=== PATIENT | female | born 1945 | race Caucasian/White ===

== ENCOUNTER 2017-09-30 09:25 | Inpatient (IN) | payer MEDICARE, OTHER ==
[2017-08-31 10:37] VITALS: Ht 157.5 cm; Wt 89.3 kg
--- NOTE | 2017-08-31 11:22 | PAT Medication Instructions ---
Service Date Aug 31, 2017. Current Home Medication List Amlodipine (Norvasc), 5 MG PO QPM Apixaban (Eliquis), 5 MG PO BID Aspirin (Aspirin Ec), 81 MG PO BID B-Complex W/Biotin & Folic Aci (Super B-50 B-Complex), 1 TAB PO QAM Biotin (Biotin 5000), 10,000 MCG PO QAM Calcium Carbonate (Tums), 1 TAB PO PRN Fish Oil (Anderson-3), 1 CAP PO QAM Flecainide (Tambocor), 75 MG PO BID Levothyroxine Sodium (Levothyroxine Sodium), 1 TAB PO QAM Metoprolol Succ (Toprol Xl) (Toprol-Xl ), 150 MG PO QAM Multivitamin (Multivitamin), 1 TAB PO QAM Nitroglycerin (Nitrostat), 0.4 MG UT PRN Simvastatin (Zocor), 20 MG PO QPM [Prevagen], 1 TAB PO QAM Medication Instructions For Your Scheduled Surgery -Hold the following medication for 2 days per your radiation safety officer's instructions: Apixaban (Eliquis), 5 MG PO BID -Contact your surgeon for instructions for: Aspirin (Aspirin Ec), 81 MG PO BID -Continue as directed: Nitroglycerin (Nitrostat), 0.4 MG UT PRN - Hold the following medications 2 weeks prior to surgery: Fish Oil (Anderson-3), 1 CAP PO QAM - Hold the following medications the morning of surgery: [Prevagen], 1 TAB PO QAM Multivitamin (Multivitamin), 1 TAB PO QAM Biotin (Biotin 5000), 10,000 MCG PO QAM Calcium Carbonate (Tums), 1 TAB PO PRN B-Complex W/Biotin & Folic Aci (Super B-50 B-Complex), 1 TAB PO QAM - Take the following medications the morning of surgery with a sip of water: Levothyroxine Sodium (Levothyroxine Sodium), 1 TAB PO QAM Metoprolol Succ (Toprol Xl) (Toprol-Xl ), 150 MG PO QAM Flecainide (Tambocor), 75 MG PO BID - Take the following medications as scheduled the night before surgery: Simvastatin (Zocor), 20 MG PO QPM Flecainide (Tambocor), 75 MG PO BID Calcium Carbonate (Tums), 1 TAB PO PRN (if needed) Amlodipine (Norvasc), 5 MG PO QPM If you have any questions please call us at [phone] or [phone] or [phone]
[2017-08-31 12:09] LABS: BASO % 0.1 %; BASO ABS # 0.01 K/uL (0-0.2); EOS % 1.3 %; EOS ABS # 0.09 K/uL (0-0.5); HEMATOCRIT 43.8 % (37-47); HEMOGLOBIN 14.7 g/dL (12.0-16.0); IG# 0.01 K/uL (0.00-0.02); LYMPH % 25.6 %; LYMPH ABS # 1.81 K/uL (1.2-3.4); MEAN CELL VOLUME 90.7 fL (80-100); MEAN CORPUSCULAR HEMOGLOBIN 30.4 pg (25-34); MEAN CORPUSCULAR HGB CONC 33.6 g/dl (32-36); MEAN PLATELET VOLUME 9.7 fL (7.4-10.4); MONO % 6.9 %; MONO ABS # 0.49 K/uL (0.11-0.59); NEUT ABS # 4.66 K/uL (1.4-6.5); PLATELET COUNT 233 K/uL (130-400); RED CELL DISTRIBUTION WIDTH CV 13.5 % (11.5-14.5); RED CELL DISTRIBUTION WIDTH SD 44.3 fL (36.4-46.3); WHITE BLOOD COUNT 7.07 K/uL (4.8-10.8)
[2017-08-31 12:15] LABS: CALCIUM 9.2 mg/dl (8.5-10.1); CREATININE 1.45 mg/dl (0.60-1.20); POTASSIUM 4.3 mmol/L (3.5-5.1)
[2017-09-30] VITALS (8 sets, daily range): BP systolic 129–156; BP diastolic 68–84; PULSE 49–59; TEMP 36.4–36.9; O2SAT 95–100
[~2017-09-30] VITALS: Ht 157.5 cm; Wt 89.3 kg
[~2017-09-30 09:25] MED LIST: AMLO-110 PO; APIX1TAB3 PO; ASPI81TA28 PO; ATROPINE SULFATE 0.1 MG/ML 5ML SYR IV PRN; B-COCAP5 PO; BIOTCAP2 PO; CALC500C3 PO; EpHEDrine SULFATE INJ 50 MG/ML AMP IV PRN; FLEC50TA20 PO; HYDROmorphone INJ 1 MG/ML SYR IV PRN; LABETALOL HCL IV 5 MG/ML 20ML IV PRN; LACTATED RINGER'S 1000ML 1,000 ML IV SCH; LEVO25TA5 PO; MEPERIDINE HCL 25 MG/ML CARP IV PRN; METO100T44 PO; MULT-506 PO; NITR0.4S UT; OMEG10007 PO; ONDANSETRON INJ 2 MG/ML 2 ML VIAL IV PRN; PREVAGEN PO; SIMV20TA2 PO; VANCOMYCIN 1GM/270ML NSS IV SCH
[2017-09-30] MEDS ORDERED: FENTANYL CITRATE INJ 50 MCG/1 ML 2 ML VIAL ONE ×2 (10:51→12:01)
[2017-09-30] MEDS ORDERED: MIDAZOLAM HCL 1 MG/ML 2ML VIAL ONE (10:51)
--- NOTE | 2017-09-30 10:55 | History & Physical Bridge Note ---
H&P Re-Evaluation Bridge Note: I have examined the patient, reviewed the History & Physical and in the interval since the performance of the History & Physical I have noted the following changes of clinical significance: No changes noted
--- NOTE | 2017-09-30 10:56 | History and Physical ---
History & Physical Date Sep 30, 2017. Chief Complaint Back and leg pain History of Present Illness The patient is a 72 year old female with complaints of back and leg pain Additional History Hepatic Disease: No Endocrine Disorder: No Kidney Disease: No Hypertension: No Heart Disease: No Bleeding Tendencies: No Infectious Diseases: No Allergies Coded Allergies: Sulfamethoxazole w/Trimethoprim (Unverified Allergy, Severe, LIP EDEMA AND ITCH, 09/30/17) Penicillins (Unverified Allergy, Mild, HIVES, 09/30/17) Prednisone (Verified Allergy, Unknown, UNABLE TO SLEEP FOR 50+ HRS, ) Ibuprofen (Unverified Adverse Reaction, Severe, NUMBNESS, 09/30/17) Home Medications Scheduled Amlodipine (Norvasc), 5 MG PO QPM Apixaban (Eliquis), 5 MG PO BID Aspirin (Aspirin Ec), 81 MG PO BID B-Complex W/Biotin & Folic Aci (Super B-50 B-Complex), 1 TAB PO QAM Biotin (Biotin 5000), 10,000 MCG PO QAM Calcium Carbonate (Tums), 1 TAB PO PRN Fish Oil (Camby-3), 1 CAP PO QAM Flecainide (Tambocor), 75 MG PO BID Levothyroxine Sodium (Levothyroxine Sodium), 1 TAB PO QAM Metoprolol Succ (Toprol Xl) (Toprol-Xl ), 150 MG PO QAM Multivitamin (Multivitamin), 1 TAB PO QAM Nitroglycerin (Nitrostat), 0.4 MG UT PRN Simvastatin (Zocor), 20 MG PO QPM [Prevagen], 1 TAB PO QAM Physical Examination Skin: warm/dry, no rash Eyes: normal inspection, EOMI, sclerae normal ENT: normal ENT inspection, pharynx normal Head: normocephalic, atraumatic Neck: supple, no adenopathy, trachea midline Respiratory/Chest: lungs clear, normal breath sounds, no respiratory distress Cardiovascular: regular rate, rhythm, no edema, no murmur Abdomen / GI: normal bowel sounds, non tender Back: normal inspection Extremities: normal inspection, normal range of motion Neurologic/Psych: no motor/sensory deficits, alert, normal reflexes, oriented x 3 Diagnosis Lumbar spinal stenosis Plan of Treatment L4-S1 decompression and fusion
[2017-09-30] MEDS ORDERED: BACITRACIN 50000 UNIT VIAL ONE (11:11)
[2017-09-30] MEDS ORDERED: BUPIVACAINE/EPINEPHRINE 0.5% MPF 1:200,000 30 ML VIAL ONE (11:11)
[2017-09-30] MEDS ORDERED: HYDROmorphone INJ 2 MG/ML SYR/VIAL ONE ×2 (12:01→13:32)
[2017-09-30] MEDS ORDERED: ONDANSETRON INJ 2 MG/ML 2 ML VIAL ONE ×2 (12:21→13:33)
[2017-09-30] MEDS ORDERED: LIDOCAINE HCL 2% 2 ML VIAL (20MG/ML) ONE (12:21)
[2017-09-30] MEDS ORDERED: PROPOFOL IV EMULSION 10 MG/ML 20 ML VIAL IV ONE (12:21)
[2017-09-30] MEDS ORDERED: DEXAMETHASONE SOD INJ 4 MG/ML VIAL ONE (12:21)
[2017-09-30] MEDS ORDERED: ROCURONIUM BROMIDE 10 MG/ML 5 ML VIAL IV ONE ×3 (13:09)
[2017-09-30] MEDS ORDERED: EpHEDrine SULFATE 50MG/5ML SYR ONE ×2 (13:10→13:33)
[2017-09-30] MEDS ORDERED: FLOSEAL HEMOSTATIC MATRIX 10ML TOP ONE (13:20)
--- NOTE | 2017-09-30 13:29 | [facility] Operative Report ---
Operative Report Operative Date Sep 30, 2017. Pre-Operative Diagnosis Lumbar spinal stenosis Post-Operative Diagnosis Lumbar spinal stenosis Procedure(s) Performed #1 lumbar decompression medial facetectomy foraminotomy L3-4 L4-5 L5-S1. #2 posterior spinal fusion L4-5 L5-S1. #3 placement of posterior segmental transportation L4-5 L5-S1. #4 interbody fusion L4-5. #5 placed a peek cage 13 x 22 mm at L4-5. #6 placement of locally harvested Bosch's allograft in the posterior gutters. #7 placement if his counts sponge, mass graft the posterior gutters and ostially up in the interbody space. Surgeon Dr. Mcdaniels Customer Account Manager Surgeon(s) Helen Argueta PA-C Estimated Blood Loss 200 ml Findings Severe spinal stenosis Specimens none per surgeon Anesthesia Type General Description of Procedure Patient was met with preoperatively case discussed all questions addressed. After informed consent obtained patient was taken to the operative suite underwent intubation and placed in a prone position on the George table on top of the Joseph frame. All bony promises were well padded the eyes were inspected to ensure no external pressure placed upon them. Sharp dissection with the assistance of Bovie cautery was performed down to and exposing the lamina and transverse processes of L4-5 and sacral ala bilaterally. From caudocephalad fashion complete laminectomy of L5 L4 and partial laminectomy of L3 was performed addressing severe lateral recess and foraminal stenosis. Pedicle screws were then placed in L4 L5-S1 levels bilaterally with the assistance of fluoroscopy and the appropriate size bobby placed. Through a trans- foraminal approach on the right complete discectomy of 045 was performed endplates created to subcortical bleeding bone and a 13 x 22 mm peek cage filled with ostium bone graft tapped in position. The bobby and locked in final position bilaterally. The transverse processes of L4-L5 and sacral ala burred to subcortical bleeding bone. InFUSE collagen sponge mesh graft and locally harvested Bosch's Was placed in the posterior gutters. 15 round ALLISON drain was inserted. Incision was closed with 1 Vicryl in the fascia 2-0 Vicryl subcutaneous and 4-0 Monocryl for fashion closure Steri-Strips sterile dressings placed. Patient weakened taken to PACU in stable condition. Please note Helen Rush was present throughout the entire procedure involved the patient positioning complex portions of the surgery and fashion closure. I attest to the content of the Intraoperative Record and any orders documented therein. Any exceptions are noted below.
[2017-09-30] MEDS ORDERED: NITROGLYCERIN 0.4 MG SL PER TAB CHARGE UT PRN (13:30)
[2017-09-30] MEDS ORDERED: FAMOTIDINE 20 MG TAB PO PRN (13:30)
[2017-09-30] MEDS ORDERED: DO NOT ADMINISTER PNEUMOCOCCAL VACCINE PRN (13:30)
[2017-09-30] MEDS ORDERED: ACETAMINOPHEN IV 100 ML IV PRN (13:30)
[2017-09-30] MEDS ORDERED: LORAZEPAM INJ 0.5 MG in SYRINGE 0.75 ML IV PRN (13:30)
[2017-09-30] MEDS ORDERED: hydrOXYzine HCL 25 MG TAB PO PRN (13:30)
[2017-09-30] MEDS ORDERED: ONDANSETRON INJ 2 MG/ML 2 ML VIAL IV PRN (13:30)
[2017-09-30] MEDS ORDERED: MAGNESIUM HYDROXIDE SUSP 30 ML UDC PO PRN (13:30)
[2017-09-30] MEDS ORDERED: DO NOT ADMINISTER FLU VACCINE PRN (13:30)
[2017-09-30] MEDS ORDERED: ACETAMINOPHEN 500 MG TAB PO PRN (13:30)
[2017-09-30] MEDS ORDERED: NALOXONE HCL 0.4 MG/1 ML VIAL/CARP IV PRN ×2 (13:30)
[2017-09-30] MEDS ORDERED: BISACODYL 10 MG SUPP PR PRN (13:30)
[2017-09-30] MEDS ORDERED: SOD PHOSPHATE/SOD BIPHOSPHATE ENEMA 132 ML BTL PR PRN (13:30)
[2017-09-30] MEDS ORDERED: ALUMINUM/MAGNESIUM SUSP 30 ML UDC PO PRN (13:30)
[2017-09-30] MEDS ORDERED: PROMETHAZINE HCL INJ 12.5 MG in SODIUM CHLORIDE 0.9% 50ML 50 ML IV PRN (13:30)
[2017-09-30] MEDS ORDERED: METOCLOPRAMIDE HCL INJ 5 MG/ML 2 ML VIAL IV PRN (13:30)
[2017-09-30] MEDS ORDERED: LORAZEPAM 0.5 MG TAB PO PRN (13:30)
[2017-09-30] MEDS ORDERED: SODIUM CHLORIDE 0.9% 1000ML 1,000 ML IV SCH (13:30)
[2017-09-30] MEDS ORDERED: GLYCOPYRROLATE INJ 0.2 MG/ML VIAL ONE (13:33)
[2017-09-30] MEDS ORDERED: NURSING VERBAL MED ORDER ONE ×2 (13:45→22:45)
--- NOTE | 2017-09-30 13:46 | DIAGNOSTIC IMAGING REPORT ---
LUMBAR SPINE 2 OR 3 VIEW CLINICAL HISTORY: L4-S1 DECOMPRESSION/FUSION laminectomy TECHNIQUE: Image intensifier COMPARISON STUDY: None FINDINGS: Images from the image intensifier were obtained of the low lumbar spine. These demonstrate a L4, L5, and S1 laminectomy and fusion. A disc spacer present at L4-L5. Alignment appears anatomic. IMPRESSION: Laminectomy and fusion from L4 through S1. The above report was generated using voice recognition software. It may contain grammatical, syntax or spelling errors. Electronically signed by: Shailesh Garcia M.D. 09/30/2017 1:45 PM Dictated Date/Time: 09/30/2017 1:44 PM
[2017-09-30] MEDS ORDERED: HYDROmorphone HCL 0.5MG/ML 50 ML CASSETTE ONE (13:47)
[2017-09-30] MEDS: FENTANYL CITRATE INJ 50 MCG/1 ML 2 ML VIAL IV PRN ×4 (13:51→14:11)
[2017-09-30] MEDS ORDERED: ALBUT/IPRATROP 3MG/0.5MG NEB 3 ML VIAL INH ONE (14:00)
--- NOTE | 2017-09-30 14:37 | Anesthesiology Progress Note ---
Anesthesia Post Op Note Date & Time Sep 30, 2017 at 14:37 Vital Signs Pain Intensity: 4 Vital Signs Past 12 Hours Date Time Temp Pulse Resp B/P (MAP) Pulse Ox O2 Delivery O2 Flow Rate FiO2 09/30/17 14:30 49 14 163/64 98 Nasal Cannula 4 09/30/17 14:20 36.2 48 12 170/84 97 Nasal Cannula 4 09/30/17 14:10 49 12 163/66 97 Nasal Cannula 4 09/30/17 14:00 54 14 166/78 100 Oxymask 10 09/30/17 14:00 53 16 100 Mask 12.0 09/30/17 13:51 59 14 192/90 100 Oxymask 10 09/30/17 13:44 36.5 62 14 178/112 100 Oxymask 10 09/30/17 10:02 36.6 55 20 156/74 98 Room Air Notes Mental Status: alert / awake / arousable, participated in evaluation Pt Amnestic to Procedure: Yes Nausea / Vomiting: adequately controlled Pain: adequately controlled Airway Patency, RR, SpO2: stable & adequate BP & HR: stable & adequate Hydration State: stable & adequate Anesthetic Complications: no major complications apparent
[2017-09-30] MEDS: HYDROmorphone HCL 0.5MG/ML 50 ML CASSETTE IV PRN ×2 (14:54→23:06)
--- NOTE | 2017-09-30 17:30 | Medical Consult ---
Consultation Date of Consultation: Sep 30, 2017. Attending Physician: Yair Mcdaniels D.O. Reason for Consultation: Postop medical management History of Present Illness 72-year-old female who is s/p L4-S1 lumbar decompression fusion today by Dr. Mcdaniels. Postoperatively patient is doing well. She is somewhat lethargic, arouses to verbal commands. She reports her pain is well controlled. She denies chest pain shortness of breath. No lightheadedness or dizziness. She denies abdominal pain and nausea. No numbness or tingling to lower extremities. She has a Balbuena in place draining clear yellow urine. Past Medical/Surgical History Medical Problems: (1) HLD (hyperlipidemia) Status: Chronic (2) HTN (hypertension) Status: Chronic (3) Hypothyroidism Status: Chronic (4) Nonobstructive atherosclerosis of coronary artery Permanent Comment: cath 2011 - non obstructive CAD Lexiscan 2015 - negative for ischemia Status: Chronic (5) Paroxysmal A-fib Status: Chronic Surgical Problems: (1) H/O arthroscopic knee surgery Status: Chronic (2) H/O shoulder surgery Status: Chronic (3) History of appendectomy Status: Chronic (4) History of carpal tunnel surgery Status: Chronic (5) History of cataract surgery Status: Chronic (6) History of hysterectomy Status: Chronic (7) S/P rotator cuff repair Status: Chronic (8) Status post arthroscopy of hip Status: Chronic (9) Status post right knee replacement Status: Chronic Family History Noncontributory Social History Smoking Status: Current Some Day Smoker Alcohol Use: none Allergies Coded Allergies: Sulfamethoxazole w/Trimethoprim (Unverified Allergy, Severe, LIP EDEMA AND ITCH, 09/30/17) Penicillins (Unverified Allergy, Mild, HIVES, 09/30/17) Prednisone (Verified Allergy, Unknown, UNABLE TO SLEEP FOR 50+ HRS, ) Ibuprofen (Unverified Adverse Reaction, Severe, NUMBNESS, 09/30/17) Home Medications Tums (Calcium Carbonate) 500 Mg Chew 1 Tab PO PRN Super B-50 B-Complex (B-Complex W/Biotin & Folic Aci) 1 Cap Cap 1 Tab PO QAM Biotin 5000 (Biotin) 5 Mg Cap 10,000 Mcg PO QAM Multivitamin (Multivitamins) Tab 1 Tab PO QAM [Prevagen] 1 Tab PO QAM Enore[place]-3 (Fish Oil) 1 Ea Cap 1 Cap PO QAM Aspirin Ec (Aspirin) 81 Mg Tab 81 Mg PO BID Tambocor (Flecainide Acetate) 50 Mg Tab 75 Mg PO BID Eliquis (Apixaban) 5 Mg Tab 5 Mg PO BID Zocor (Simvastatin) 20 Mg Tab 20 Mg PO QPM Norvasc (Amlodipine Besylate) 5 Mg Tab 5 Mg PO QPM Levothyroxine Sodium 25 Mcg Tab 1 Tab PO QAM 90 Days Toprol-Xl (Metoprolol Succinate) 100 Mg Tabcr 150 Mg PO QAM Nitrostat (Nitroglycerin) 0.4 Mg Sub 0.4 Mg UT PRN Current Inpatient Medications Current Inpatient Medications Medications (Trade) Dose Ordered Sig/Donavan Route Start Time Stop Time Status Last Admin Dose Admin Lactated Ringer's 1,000 ml @ 15 mls/hr Q24H IV 09/30/17 06:00 10/01/17 05:59 09/30/17 10:47 15 MLS/HR Vancomycin HCl 270 ml @ 125 mls/hr PREOP IV 09/30/17 06:00 09/30/17 18:00 09/30/17 10:48 125 MLS/HR Clindamycin Phosphate 600 mg/ Dextrose 54 ml @ 100 mls/hr Q8H IV 09/30/17 19:00 10/01/17 03:33 Promethazine HCl 12.5 mg/Sodium Chloride 50.5 ml @ 202 mls/hr Q6H PRN IV 09/30/17 13:30 10/30/17 13:29 Ondansetron HCl (Zofran Inj) 4 mg Q6H PRN IV 09/30/17 13:30 10/30/17 13:29 Metoclopramide HCl (Reglan Inj) 10 mg Q6H PRN IV 09/30/17 13:30 10/30/17 13:29 Lorazepam (Ativan Tab) 0.5 mg Q8H PRN PO 09/30/17 13:30 10/30/17 13:29 Lorazepam 0.5 mg/ Syringe 1 ml @ 1 mls/min Q8H PRN IV 09/30/17 13:30 10/30/17 13:29 Pneumococcal Polysaccharide Vaccine 1 ea PRN PRN N/A 09/30/17 13:30 10/30/17 13:29 Influenza Virus Vacc Triv Types A&B 1 ea PRN PRN N/A 09/30/17 13:30 10/30/17 13:29 Polyethylene (Miralax Powder Packet) 17 gm Q6 PO 10/02/17 06:00 11/01/17 05:59 Bisacodyl (Dulcolax Supp) 10 mg DAILY PRN ID 09/30/17 13:30 10/30/17 13:29 Magnesium Hydroxide (Milk Of Magnesia Susp) 30 ml DAILY PRN PO 09/30/17 13:30 10/30/17 13:29 Hydromorphone HCl (Dilaudid Inj) 0.5 mg Q3H PRN IV 10/01/17 06:00 10/15/17 05:59 Oxycodone HCl (Roxicodone Immediate Rel Tab) 5-10mg prn moderate to sev... Q4H PRN PO 10/01/17 06:00 10/15/17 05:59 Sodium Chloride 1,000 ml @ 150 mls/hr Q6H40M IV 09/30/17 15:30 10/30/17 15:29 Acetaminophen (Tylenol Tab) 1,000 mg Q8H PRN PO 09/30/17 13:30 10/30/17 13:29 Acetaminophen 100 ml @ 400 mls/hr Q8H PRN IV 09/30/17 13:30 10/30/17 13:29 Naloxone HCl (Narcan Inj) 0.1 mg Q5M PRN IV 09/30/17 13:30 10/30/17 13:29 Senna/Docusate Sodium (Senokot S Tab) 2 tab HS PO 09/30/17 21:00 10/30/17 20:59 Sodium Biphosphate/ Sodium Phosphate (Fleet Enema) 132 ml ONE PRN ID 09/30/17 13:30 10/30/17 13:29 Hydroxyzine HCl (Vistaril Tab) 25 mg Q8H PRN PO 09/30/17 13:30 10/30/17 13:29 Al Hydroxide/Mg Hydroxide (Maalox Susp) 30 ml Q6H PRN PO 09/30/17 13:30 10/30/17 13:29 Famotidine (Pepcid Tab) 20 mg DAILY PRN PO 09/30/17 13:30 10/30/17 13:29 Diphenhydramine HCl (Benadryl Cap) 25 mg Q6H PRN PO 09/30/17 13:30 10/30/17 13:29 Miscellaneous Information (Discontinue DEMAND PLANNER) 1 ea 0600 ONCE N/A 10/01/17 06:00 10/01/17 06:01 Naloxone HCl (Narcan Inj) 0.1 mg Q5M PRN IV 09/30/17 13:30 10/01/17 06:00 Hydromorphone HCl (Dilaudid Slicing Machine Tender) 25 mg PRN PRN IV 09/30/17 13:30 10/01/17 06:00 09/30/17 14:54 25 MG Sodium Chloride 1,000 ml @ 15 mls/hr Q24H IV 09/30/17 13:30 10/01/17 06:00 Amlodipine Besylate (Norvasc Tab) 5 mg QPM PO 09/30/17 21:00 10/30/17 20:59 Aspirin (Ecotrin Tab) 81 mg BID PO 09/30/17 21:00 10/30/17 20:59 Calcium Carbonate (Tums Chew Tab) 500 mg Q2H PRN PO 09/30/17 13:30 10/30/17 13:29 Flecainide Acetate (Tambocor Tab) 75 mg BID PO 09/30/17 21:00 10/30/17 20:59 Levothyroxine Sodium (Synthroid Tab) 25 mcg DAILYBB PO 10/01/17 06:00 10/31/17 05:59 Metoprolol Succinate (Toprol Xl Tab) 150 mg QAM PO 10/01/17 09:00 10/31/17 08:59 Nitroglycerin (Nitrostat Tab) 0.4 mg UD PRN UT 09/30/17 13:30 10/30/17 13:29 Simvastatin (Zocor Tab) 20 mg QPM PO 09/30/17 21:00 10/30/17 20:59 Hydromorphone HCl (Dilaudid Inj) 1 mg Q3H PRN IV 10/01/17 06:00 10/15/17 05:59 Review of Systems ROS per HPI, all other systems reviewed and negative Physical Exam Date Time Temp Pulse Resp B/P (MAP) Pulse Ox O2 Delivery O2 Flow Rate FiO2 09/30/17 16:52 36.4 49 15 131/76 (94) 98 Nasal Cannula 4.0 09/30/17 15:55 36.4 50 15 150/68 (95) 96 Nasal Cannula 4.0 09/30/17 15:40 Nasal Cannula 4.0 09/30/17 15:24 50 15 129/70 (89) 97 Nasal Cannula 4.0 09/30/17 14:55 Nasal Cannula 4.0 09/30/17 14:55 Nasal Cannula 4.0 09/30/17 14:30 49 14 163/64 98 Nasal Cannula 4 09/30/17 14:20 36.2 48 12 170/84 97 Nasal Cannula 4 09/30/17 14:10 49 12 163/66 97 Nasal Cannula 4 09/30/17 14:00 54 14 166/78 100 Oxymask 10 09/30/17 14:00 53 16 100 Mask 12.0 09/30/17 13:51 59 14 192/90 100 Oxymask 10 09/30/17 13:44 36.5 62 14 178/112 100 Oxymask 10 09/30/17 10:02 36.6 55 20 156/74 98 Room Air General Appearance: WD/WN, no apparent distress Head: normocephalic, atraumatic Eyes: normal inspection, EOMI, sclerae normal ENT: hearing grossly normal, + pertinent finding (Mucous membranes moist) Neck: supple, no JVD, trachea midline Respiratory/Chest: lungs clear, normal breath sounds, no respiratory distress, + wheezing (Mild expiratory noted in anterior lung grimaldo that clears with coughing) Cardiovascular: regular rate, rhythm, no edema, normal peripheral pulses Abdomen/GI: normal bowel sounds, non tender, soft, no organomegaly Back: + pertinent finding (S/P back surgery, drain in place draining bloody drainage, pedal pushes and pulls strong bilaterally) Extremities/Musculoskelatal: normal inspection, no calf tenderness, normal capillary refill Neurologic/Psych: no motor/sensory deficits, oriented x 3, + pertinent finding (Lethargic and falls asleep quickly during exam however arouses to verbal stimuli) Skin: normal color, warm/dry Assessment & Plan S/P L4-S1 DECOMPRESSION FUSION - POD#0 - activity and wound care orders as per ortho - pain control with bowel regimen - PT/OT - monitor H/H for acute blood loss anemia and transfuse blood products PRN PAROXYSMAL ATRIAL FIBRILLATION -Rhythm controlled on flecainide and rate controlled on metoprolol, continue both -Anticoagulated on Eliquis, on hold due to surgery -Resume Eliquis when okay with spine orthopedics HYPERTENSION -BP controlled, continue metoprolol and amlodipine HYPOTHYROIDISM -Continue levothyroxine HYPERLIPIDEMIA -Continue statin DVT PROPHYLAXIS -Teds and SCDs as per orthopedics, resume orthopedics as per their discretion Thank you for this consultation. We will follow the patient with you during their hospital stay. You can reach a [facility] via pager @ . Addendum: I have seen and examined the patient and agree with the note above. Michael,
[2017-09-30] MEDS: CLINDAMYCIN IV 600 MG in DEXTROSE 5% 50ML 50 ML IV SCH (19:54)
[2017-09-30] MEDS: SODIUM CHLORIDE 0.9% 1000ML 1,000 ML IV SCH (19:55)
[2017-09-30] MEDS: DOCUSATE SODIUM/SENNA 50/8.6MG TAB PO SCH (21:20)
[2017-09-30] MEDS: AMLODIPINE BESYLATE 5 MG TAB PO SCH (21:21)
[2017-09-30] MEDS: SIMVASTATIN 20 MG TAB PO SCH (21:21)
[2017-09-30] MEDS: FLECAINIDE ACETATE 100 MG TAB PO SCH (21:22)
[2017-09-30] MEDS: ASPIRIN 81 MG ECTAB PO SCH (21:22)
[2017-09-30] MEDS: CALCIUM CARBONATE 500 MG CHEWABLE PO PRN (23:10)
[2017-10-01] VITALS (9 sets, daily range): BP systolic 130–165; BP diastolic 72–83; PULSE 57–66; TEMP 36.4–37.1; O2SAT 93–97
[2017-10-01] MEDS: SODIUM CHLORIDE 0.9% 1000ML 1,000 ML IV SCH ×2 (02:00→15:24)
[2017-10-01] MEDS: CLINDAMYCIN IV 600 MG in DEXTROSE 5% 50ML 50 ML IV SCH (02:00)
[2017-10-01] MEDS: LEVOTHYROXINE 25 MCG TAB PO SCH (05:24)
[2017-10-01] MEDS ORDERED: DC PCA ONE (06:00)
[2017-10-01] MEDS ORDERED: HYDROmorphone INJ 0.5 MG/0.5 ML SYR IV PRN (06:00)
[2017-10-01] MEDS ORDERED: NURSING DECISION MEDICATION ORDER SCH (06:15)
[2017-10-01] MEDS: ASPIRIN 81 MG ECTAB PO SCH ×2 (09:25→21:46)
[2017-10-01] MEDS: FLECAINIDE ACETATE 100 MG TAB PO SCH ×2 (09:31→21:46)
[2017-10-01] MEDS: METOPROLOL SUCC 50MG EXT REL TAB PO SCH (09:35)
--- NOTE | 2017-10-01 09:46 | Progress Note ---
Progress Note Date of Service Oct 01, 2017. Progress Note Patient's back pain is controlled. She denies any leg pain. Vital signs are stable. On exam she is good strength testing. Assessment status post lumbar decompression and fusion. Plan at this time we will initiate physical therapy advance her bowel regimen to anticipate discharge home this weekend.
--- NOTE | 2017-10-01 09:57 | Anesthesiology Progress Note ---
Anesthesia Post Op Note Date & Time Oct 01, 2017 at 09:55 Vital Signs Vital Signs Past 12 Hours Date Time Temp Pulse Resp B/P (MAP) Pulse Ox O2 Delivery O2 Flow Rate FiO2 10/01/17 09:35 61 152/76 (101) 10/01/17 07:45 36.4 57 14 144/73 (96) 96 Room Air 10/01/17 05:12 96 Room Air 10/01/17 03:25 36.7 60 18 130/72 (91) 97 Nasal Cannula 2.0 10/01/17 00:10 96 Nasal Cannula 1.0 09/30/17 23:12 36.5 59 15 137/84 (101) 95 Nasal Cannula 2.0 Notes Mental Status: alert / awake / arousable, participated in evaluation Pt Amnestic to Procedure: Yes Nausea / Vomiting: adequately controlled Pain: adequately controlled Airway Patency, RR, SpO2: stable & adequate BP & HR: stable & adequate Hydration State: stable & adequate Anesthetic Complications: no major complications apparent
[2017-10-01 10:17] LABS: EOS % 0.1 %; EOS ABS # 0.01 K/uL (0-0.5); HEMATOCRIT 38.6 % (37-47); HEMOGLOBIN 12.8 g/dL (12.0-16.0); IG# 0.04 K/uL (0.00-0.02); LYMPH ABS # 1.18 K/uL (1.2-3.4); MEAN CELL VOLUME 92.8 fL (80-100); MEAN CORPUSCULAR HEMOGLOBIN 30.8 pg (25-34); MEAN CORPUSCULAR HGB CONC 33.2 g/dl (32-36); MEAN PLATELET VOLUME 10.3 fL (7.4-10.4); MONO % 8.6 %; MONO ABS # 1.12 K/uL (0.11-0.59); NEUT ABS # 10.73 K/uL (1.4-6.5); PLATELET COUNT 203 K/uL (130-400); RED CELL DISTRIBUTION WIDTH CV 13.6 % (11.5-14.5); RED CELL DISTRIBUTION WIDTH SD 46.2 fL (36.4-46.3); WHITE BLOOD COUNT 13.08 K/uL (4.8-10.8)
[2017-10-01 10:48] LABS: CALCIUM 8.8 mg/dl (8.5-10.1); CREATININE 1.85 mg/dl (0.60-1.20); POTASSIUM 4.9 mmol/L (3.5-5.1)
[2017-10-01] MEDS: HYDROmorphone INJ 1 MG/ML SYR IV PRN ×2 (13:33→23:08)
[2017-10-01] MEDS: ALBUT/IPRATROP 3MG/0.5MG NEB 3 ML VIAL INH PRN (14:38)
--- NOTE | 2017-10-01 15:03 | Progress Note ---
Subjective Date of Service: Oct 01, 2017. Subjective Pt evaluation today including: conversation w/ patient, physical exam, lab review, review of studies, review of inpatient medication list Saw/examined the patient in room 304 She's doing okay; pain in the lower back persists and worsened after therapy, improved with medications +wheezing; patient states she does not have COPD or asthma; but has a significant smoking hx. - tells me that she stopped smoking Review of Systems Constitutional: No fever, No chills Respiratory: + wheezing, No cough, No sputum, No shortness of breath, No dyspnea on exertion, No dyspnea at rest, No hemoptysis Cardiac: No chest pain, No edema, No palpitations Abdomen: + constipation, No pain, No nausea, No vomiting, No diarrhea Musculoskeletal: + see HPI, + joint pain Medications Current Inpatient Medications Medications (Trade) Dose Ordered Sig/Donavan Route Start Time Stop Time Status Last Admin Dose Admin Promethazine HCl 12.5 mg/Sodium Chloride 50.5 ml @ 202 mls/hr Q6H PRN IV 09/30/17 13:30 10/30/17 13:29 Ondansetron HCl (Zofran Inj) 4 mg Q6H PRN IV 09/30/17 13:30 10/30/17 13:29 Metoclopramide HCl (Reglan Inj) 10 mg Q6H PRN IV 09/30/17 13:30 10/30/17 13:29 Lorazepam (Ativan Tab) 0.5 mg Q8H PRN PO 09/30/17 13:30 10/30/17 13:29 Lorazepam 0.5 mg/ Syringe 1 ml @ 1 mls/min Q8H PRN IV 09/30/17 13:30 10/30/17 13:29 Pneumococcal Polysaccharide Vaccine 1 ea PRN PRN N/A 09/30/17 13:30 10/30/17 13:29 Influenza Virus Vacc Triv Types A&B 1 ea PRN PRN N/A 09/30/17 13:30 10/30/17 13:29 Polyethylene (Miralax Powder Packet) 17 gm Q6 PO 10/02/17 06:00 11/01/17 05:59 Bisacodyl (Dulcolax Supp) 10 mg DAILY PRN ME 09/30/17 13:30 10/30/17 13:29 Magnesium Hydroxide (Milk Of Magnesia Susp) 30 ml DAILY PRN PO 09/30/17 13:30 10/30/17 13:29 Hydromorphone HCl (Dilaudid Inj) 0.5 mg Q3H PRN IV 10/01/17 06:00 10/15/17 05:59 Oxycodone HCl (Roxicodone Immediate Rel Tab) 5-10mg prn moderate to sev... Q4H PRN PO 10/01/17 06:00 10/15/17 05:59 Acetaminophen (Tylenol Tab) 1,000 mg Q8H PRN PO 09/30/17 13:30 10/30/17 13:29 Acetaminophen 100 ml @ 400 mls/hr Q8H PRN IV 09/30/17 13:30 10/30/17 13:29 Naloxone HCl (Narcan Inj) 0.1 mg Q5M PRN IV 09/30/17 13:30 10/30/17 13:29 Senna/Docusate Sodium (Senokot S Tab) 2 tab HS PO 09/30/17 21:00 10/30/17 20:59 09/30/17 21:20 2 TAB Sodium Biphosphate/ Sodium Phosphate (Fleet Enema) 132 ml ONE PRN ME 09/30/17 13:30 10/30/17 13:29 Hydroxyzine HCl (Vistaril Tab) 25 mg Q8H PRN PO 09/30/17 13:30 10/30/17 13:29 Al Hydroxide/Mg Hydroxide (Maalox Susp) 30 ml Q6H PRN PO 09/30/17 13:30 10/30/17 13:29 Famotidine (Pepcid Tab) 20 mg DAILY PRN PO 09/30/17 13:30 10/30/17 13:29 Diphenhydramine HCl (Benadryl Cap) 25 mg Q6H PRN PO 09/30/17 13:30 10/30/17 13:29 Amlodipine Besylate (Norvasc Tab) 5 mg QPM PO 09/30/17 21:00 10/30/17 20:59 09/30/17 21:21 5 MG Aspirin (Ecotrin Tab) 81 mg BID PO 09/30/17 21:00 10/30/17 20:59 10/01/17 09:25 81 MG Calcium Carbonate (Tums Chew Tab) 500 mg Q2H PRN PO 09/30/17 13:30 10/30/17 13:29 09/30/17 23:10 500 MG Flecainide Acetate (Tambocor Tab) 75 mg BID PO 09/30/17 21:00 10/30/17 20:59 10/01/17 09:31 75 MG Levothyroxine Sodium (Synthroid Tab) 25 mcg DAILYBB PO 10/01/17 06:00 10/31/17 05:59 10/01/17 05:24 25 MCG Metoprolol Succinate (Toprol Xl Tab) 150 mg QAM PO 10/01/17 09:00 10/31/17 08:59 10/01/17 09:35 150 MG Nitroglycerin (Nitrostat Tab) 0.4 mg UD PRN UT 09/30/17 13:30 10/30/17 13:29 Simvastatin (Zocor Tab) 20 mg QPM PO 09/30/17 21:00 10/30/17 20:59 09/30/17 21:21 20 MG Hydromorphone HCl (Dilaudid Inj) 1 mg Q3H PRN IV 10/01/17 06:00 10/15/17 05:59 10/01/17 13:33 1 MG Albuterol/ Ipratropium (Duoneb) 3 ml Q4R PRN INH 10/01/17 13:45 10/31/17 13:44 Objective Vital Signs Date Time Temp Pulse Resp B/P (MAP) Pulse Ox O2 Delivery O2 Flow Rate FiO2 10/01/17 09:35 61 152/76 (101) 10/01/17 07:45 36.4 57 14 144/73 (96) 96 Room Air 10/01/17 07:26 Room Air 10/01/17 05:12 96 Room Air 10/01/17 03:25 36.7 60 18 130/72 (91) 97 Nasal Cannula 2.0 10/01/17 00:10 96 Nasal Cannula 1.0 09/30/17 23:12 36.5 59 15 137/84 (101) 95 Nasal Cannula 2.0 09/30/17 20:15 36.4 53 16 132/69 (90) 97 Nasal Cannula 2.0 3/14/18 18:10 36.9 52 15 129/82 (98) 97 Nasal Cannula 4.0 09/30/17 16:52 36.4 49 15 131/76 (94) 98 Nasal Cannula 4.0 09/30/17 15:55 36.4 50 15 150/68 (95) 96 Nasal Cannula 4.0 09/30/17 15:40 Nasal Cannula 4.0 09/30/17 15:24 50 15 129/70 (89) 97 Nasal Cannula 4.0 09/30/17 14:55 Nasal Cannula 4.0 09/30/17 14:55 Nasal Cannula 4.0 Physical Exam General Appearance: no apparent distress, + obese Respiratory/Chest: no respiratory distress, no accessory muscle use, + wheezing (diffuse end expiratory wheezing) Cardiovascular: regular rate, rhythm, no edema, no murmur Extremities: normal range of motion, non-tender, normal inspection, no pedal edema, no calf tenderness Neurologic/Psychiatric: no motor/sensory deficits, alert Laboratory Results Last 24 Hours Test 10/01/17 09:46 White Blood Count 13.08 K/uL Red Blood Count 4.16 M/uL Hemoglobin 12.8 g/dL Hematocrit 38.6 % Mean Corpuscular Volume 92.8 fL Mean Corpuscular Hemoglobin 30.8 pg Mean Corpuscular Hemoglobin Concent 33.2 g/dl Platelet Count 203 K/uL Mean Platelet Volume 10.3 fL Neutrophils (%) (Auto) 82.0 % Lymphocytes (%) (Auto) 9.0 % Monocytes (%) (Auto) 8.6 % Eosinophils (%) (Auto) 0.1 % Basophils (%) (Auto) 0.0 % Neutrophils # (Auto) 10.73 K/uL Lymphocytes # (Auto) 1.18 K/uL Monocytes # (Auto) 1.12 K/uL Eosinophils # (Auto) 0.01 K/uL Basophils # (Auto) 0.00 K/uL RDW Standard Deviation 46.2 fL RDW Coefficient of Variation 13.6 % Immature Granulocyte % (Auto) 0.3 % Immature Granulocyte # (Auto) 0.04 K/uL Sodium Level 136 mmol/L Potassium Level 4.9 mmol/L Chloride Level 104 mmol/L Carbon Dioxide Level 24 mmol/L Anion Gap 8.0 mmol/L Blood Urea Nitrogen 42 mg/dl Creatinine 1.85 mg/dl Est Creatinine Clear Calc Drug Dose 27.7 ml/min Estimated GFR () 30.6 Estimated GFR (Non- 26.4 BUN/Creatinine Ratio 22.7 Random Glucose 115 mg/dl Calcium Level 8.8 mg/dl Assessment and Plan This is a 72 year old female with a PMH of paroxysmal atrial fibrillation, CAD, HTN, hypothyroidism, HLD - presents for a lumbar decompression/fusion s/p lumbosacral decompression/fusion * POD #1 * doing well, no problems/issues * pain management as per ortho * monitor H/H Acute Kidney Injury likely underlying chronic kidney disease * creatinine elevated at around 1.8 today * yesterday, creatinine was around 1.4; from previous admission in 2013; creat baseline might be around 1.4 * for now, will do gentle IV hydration and encourage PO intake, recheck BMP in AM Wheezing * hx. of tobacco use * adding nebs * incentive spirometer * denies shortness of breath Paroxysmal A. Fib * Rhythm controlled on flecainide and rate controlled on metoprolol, continue both * resume Eliquis when okay with ortho HTN * BP controlled, continue metoprolol and amlodipine Hypothyroidism * Continue levothyroxine HLD * cont. statin DVT ppx * as per ortho FULL CODE
[2017-10-01] MEDS: CALCIUM CARBONATE 500 MG CHEWABLE PO PRN (18:57)
[2017-10-01] MEDS: DOCUSATE SODIUM/SENNA 50/8.6MG TAB PO SCH (21:46)
[2017-10-01] MEDS: SIMVASTATIN 20 MG TAB PO SCH (21:47)
[2017-10-01] MEDS: AMLODIPINE BESYLATE 5 MG TAB PO SCH (21:47)
[2017-10-02] VITALS (8 sets, daily range): BP systolic 121–170; BP diastolic 69–90; PULSE 62–68; TEMP 36.9–37.1; O2SAT 90–100
[2017-10-02] MEDS: SODIUM CHLORIDE 0.9% 1000ML 1,000 ML IV SCH ×2 (03:23→15:26)
[2017-10-02] MEDS: OXYCODONE HCL IR 5 MG TAB (IMMEDIATE RELEASE) PO PRN ×4 (03:23→17:56)
[2017-10-02] MEDS: LEVOTHYROXINE 25 MCG TAB PO SCH (05:37)
[2017-10-02] MEDS: POLYETHYLENE (MIRALAX) 17 GM PACK PO SCH ×3 (05:37→17:52)
[2017-10-02 06:08] LABS: HEMATOCRIT 31.2 % (37-47); HEMOGLOBIN 10.4 g/dL (12.0-16.0); MEAN CELL VOLUME 92.3 fL (80-100); MEAN CORPUSCULAR HEMOGLOBIN 30.8 pg (25-34); MEAN CORPUSCULAR HGB CONC 33.3 g/dl (32-36); MEAN PLATELET VOLUME 9.8 fL (7.4-10.4); PLATELET COUNT 171 K/uL (130-400); RED CELL DISTRIBUTION WIDTH SD 47.2 fL (36.4-46.3); WHITE BLOOD COUNT 10.42 K/uL (4.8-10.8)
[2017-10-02 06:39] LABS: CALCIUM 8.4 mg/dl (8.5-10.1); CREATININE 1.63 mg/dl (0.60-1.20); POTASSIUM 4.6 mmol/L (3.5-5.1)
[2017-10-02] MEDS ORDERED: AMLODIPINE BESYLATE 5 MG TAB PO ONE (08:00)
[2017-10-02] MEDS: FLECAINIDE ACETATE 100 MG TAB PO SCH ×2 (09:40→22:18)
[2017-10-02] MEDS: METOPROLOL SUCC 50MG EXT REL TAB PO SCH (09:40)
[2017-10-02] MEDS: ASPIRIN 81 MG ECTAB PO SCH ×2 (09:40→22:18)
[2017-10-02] MEDS: ALBUT/IPRATROP 3MG/0.5MG NEB 3 ML VIAL INH PRN (13:52)
--- NOTE | 2017-10-02 14:07 | Progress Note ---
Progress Note Date of Service Oct 02, 2017. Progress Note Patient's back pain is controlled. She denies any leg pain. On exam she has good strength testing appears comfortable. Assessment status post lumbar decompression fusion per plan at this time we will continue physical therapy monitor ALLISON output anticipate discharge home this weekend.
[2017-10-02] MEDS ORDERED: HYDROmorphone INJ 0.5 MG/0.5 ML SYR IV STA (15:53)
--- NOTE | 2017-10-02 16:43 | Progress Note ---
Subjective Date of Service: Oct 02, 2017. Subjective Pt evaluation today including: conversation w/ patient, physical exam, lab review, review of studies, review of inpatient medication list Saw/examined the patient in room 304 She is sitting in a chair; tells me she is in pain +pain worsened today, she is more tired today as well Review of Systems Constitutional: No fever, No chills Respiratory: No cough, No sputum, No shortness of breath Cardiac: No chest pain, No edema, No palpitations Abdomen: + constipation, No pain, No nausea, No vomiting, No diarrhea Musculoskeletal: + joint pain Medications Current Inpatient Medications Medications (Trade) Dose Ordered Sig/Donavan Route Start Time Stop Time Status Last Admin Dose Admin Promethazine HCl 12.5 mg/Sodium Chloride 50.5 ml @ 202 mls/hr Q6H PRN IV 09/30/17 13:30 10/30/17 13:29 Ondansetron HCl (Zofran Inj) 4 mg Q6H PRN IV 09/30/17 13:30 10/30/17 13:29 Metoclopramide HCl (Reglan Inj) 10 mg Q6H PRN IV 09/30/17 13:30 10/30/17 13:29 Lorazepam (Ativan Tab) 0.5 mg Q8H PRN PO 09/30/17 13:30 10/30/17 13:29 Lorazepam 0.5 mg/ Syringe 1 ml @ 1 mls/min Q8H PRN IV 09/30/17 13:30 10/30/17 13:29 Pneumococcal Polysaccharide Vaccine 1 ea PRN PRN N/A 09/30/17 13:30 10/30/17 13:29 Influenza Virus Vacc Triv Types A&B 1 ea PRN PRN N/A 09/30/17 13:30 10/30/17 13:29 Polyethylene (Miralax Powder Packet) 17 gm Q6 PO 10/02/17 06:00 11/01/17 05:59 10/02/17 11:29 17 GM Bisacodyl (Dulcolax Supp) 10 mg DAILY PRN [place] 09/30/17 13:30 10/30/17 13:29 Magnesium Hydroxide (Milk Of Magnesia Susp) 30 ml DAILY PRN PO 09/30/17 13:30 10/30/17 13:29 Hydromorphone HCl (Dilaudid Inj) 0.5 mg Q3H PRN IV 10/01/17 06:00 10/15/17 05:59 Oxycodone HCl (Roxicodone Immediate Rel Tab) 5-10mg prn moderate to sev... Q4H PRN PO 10/01/17 06:00 10/15/17 05:59 10/02/17 13:31 10 MG Acetaminophen (Tylenol Tab) 1,000 mg Q8H PRN PO 09/30/17 13:30 10/30/17 13:29 10/02/17 15:27 1,000 MG Acetaminophen 100 ml @ 400 mls/hr Q8H PRN IV 09/30/17 13:30 10/30/17 13:29 Naloxone HCl (Narcan Inj) 0.1 mg Q5M PRN IV 09/30/17 13:30 10/30/17 13:29 Senna/Docusate Sodium (Senokot S Tab) 2 tab HS PO 09/30/17 21:00 10/30/17 20:59 10/01/17 21:46 2 TAB Sodium Biphosphate/ Sodium Phosphate (Fleet Enema) 132 ml ONE PRN [place] 09/30/17 13:30 10/30/17 13:29 Hydroxyzine HCl (Vistaril Tab) 25 mg Q8H PRN PO 09/30/17 13:30 10/30/17 13:29 Al Hydroxide/Mg Hydroxide (Maalox Susp) 30 ml Q6H PRN PO 09/30/17 13:30 10/30/17 13:29 Famotidine (Pepcid Tab) 20 mg DAILY PRN PO 09/30/17 13:30 10/30/17 13:29 Diphenhydramine HCl (Benadryl Cap) 25 mg Q6H PRN PO 09/30/17 13:30 10/30/17 13:29 Aspirin (Ecotrin Tab) 81 mg BID PO 09/30/17 21:00 10/30/17 20:59 10/02/17 09:40 81 MG Calcium Carbonate (Tums Chew Tab) 500 mg Q2H PRN PO 09/30/17 13:30 10/30/17 13:29 10/01/17 18:57 500 MG Flecainide Acetate (Tambocor Tab) 75 mg BID PO 09/30/17 21:00 10/30/17 20:59 10/02/17 09:40 75 MG Levothyroxine Sodium (Synthroid Tab) 25 mcg DAILYBB PO 10/01/17 06:00 10/31/17 05:59 10/02/17 05:37 25 MCG Metoprolol Succinate (Toprol Xl Tab) 150 mg QAM PO 10/01/17 09:00 10/31/17 08:59 10/02/17 09:40 150 MG Nitroglycerin (Nitrostat Tab) 0.4 mg UD PRN UT 09/30/17 13:30 10/30/17 13:29 Simvastatin (Zocor Tab) 20 mg QPM PO 09/30/17 21:00 10/30/17 20:59 10/01/17 21:47 20 MG Hydromorphone HCl (Dilaudid Inj) 1 mg Q3H PRN IV 10/01/17 06:00 10/15/17 05:59 10/01/17 23:08 1 MG Albuterol/ Ipratropium (Duoneb) 3 ml Q4R PRN INH 10/01/17 13:45 10/31/17 13:44 10/02/17 13:52 3 ML Sodium Chloride 1,000 ml @ 80 mls/hr [id number] IV 10/01/17 15:00 10/31/17 14:59 10/02/17 15:26 80 MLS/HR Amlodipine Besylate (Norvasc Tab) 10 mg QPM PO 10/02/17 21:00 10/30/17 20:59 Objective Vital Signs Date Time Temp Pulse Resp B/P (MAP) Pulse Ox O2 Delivery O2 Flow Rate FiO2 10/02/17 15:03 37.0 65 18 136/75 (95) 93 Room Air 65 10/02/17 13:53 68 16 100 Nasal Cannula 2.0 10/02/17 11:45 36.9 62 20 162/90 (114) 99 Nasal Cannula 2.0 10/02/17 09:38 66 121/69 (86) 10/02/17 08:54 97 Nasal Cannula 2.0 10/02/17 08:21 97 Nasal Cannula 2.0 10/02/17 08:12 37.1 68 18 170/90 (116) 90 Room Air 10/02/17 08:10 Room Air 2.0 10/01/17 23:50 Room Air 10/01/17 22:57 37.1 65 16 165/83 (110) 94 Room Air 10/01/17 20:10 36.9 63 17 146/79 (101) 94 Room Air Physical Exam General Appearance: + mild distress (secondary to pain) Respiratory/Chest: no respiratory distress, no accessory muscle use Cardiovascular: regular rate, rhythm Extremities: normal inspection, no pedal edema Laboratory Results Last 24 Hours Test 10/02/17 05:23 White Blood Count 10.42 K/uL Red Blood Count 3.38 M/uL Hemoglobin 10.4 g/dL Hematocrit 31.2 % Mean Corpuscular Volume 92.3 fL Mean Corpuscular Hemoglobin 30.8 pg Mean Corpuscular Hemoglobin Concent 33.3 g/dl RDW Standard Deviation 47.2 fL RDW Coefficient of Variation 14.0 % Platelet Count 171 K/uL Mean Platelet Volume 9.8 fL Sodium Level 137 mmol/L Potassium Level 4.6 mmol/L Chloride Level 106 mmol/L Carbon Dioxide Level 25 mmol/L Anion Gap 6.0 mmol/L Blood Urea Nitrogen 42 mg/dl Creatinine 1.63 mg/dl Est Creatinine Clear Calc Drug Dose 31.4 ml/min Estimated GFR () 35.6 Estimated GFR (Non- 30.7 BUN/Creatinine Ratio 25.8 Random Glucose 104 mg/dl Calcium Level 8.4 mg/dl Assessment and Plan This is a 72 year old female with a PMH of paroxysmal atrial fibrillation, CAD, HTN, hypothyroidism, HLD - presents for a lumbar decompression/fusion s/p lumbosacral decompression/fusion 10/02 * POD #2 * continue current management * one time dose of 0.5mg of Dilaudid * then try to stay away from IV pain meds 10/01 * POD #1 * doing well, no problems/issues * pain management as per ortho * monitor H/H Acute Kidney Injury likely underlying chronic kidney disease 10/02 * creatinine down to 1.6 * baseline closer to 1.4-1.5 10/01 * creatinine elevated at around 1.8 today * yesterday, creatinine was around 1.4; from previous admission in 2013; creat baseline might be around 1.4 * for now, will do gentle IV hydration and encourage PO intake, recheck BMP in AM Wheezing * hx. of tobacco use * adding nebs * incentive spirometer * denies shortness of breath Paroxysmal A. Fib * Rhythm controlled on flecainide and rate controlled on metoprolol, continue both * resume Eliquis when okay with ortho HTN * BP controlled, continue metoprolol and amlodipine Hypothyroidism * Continue levothyroxine HLD * cont. statin DVT ppx * as per ortho FULL CODE
[2017-10-02] MEDS: CALCIUM CARBONATE 500 MG CHEWABLE PO PRN ×2 (20:16→22:16)
[2017-10-02] MEDS: DOCUSATE SODIUM/SENNA 50/8.6MG TAB PO SCH (22:17)
[2017-10-02] MEDS: AMLODIPINE BESYLATE 5 MG TAB PO SCH (22:18)
[2017-10-02] MEDS: SIMVASTATIN 20 MG TAB PO SCH (22:19)
[2017-10-03] VITALS (7 sets, daily range): BP systolic 128–158; BP diastolic 73–81; PULSE 64–77; TEMP 36.7–37.3; O2SAT 89–97
[2017-10-03] MEDS: POLYETHYLENE (MIRALAX) 17 GM PACK PO SCH ×5 (00:17→23:41)
[2017-10-03] MEDS: OXYCODONE HCL IR 5 MG TAB (IMMEDIATE RELEASE) PO PRN ×3 (00:18→13:56)
[2017-10-03] MEDS: SODIUM CHLORIDE 0.9% 1000ML 1,000 ML IV SCH ×2 (04:44→17:00)
[2017-10-03] MEDS: LEVOTHYROXINE 25 MCG TAB PO SCH (05:42)
[2017-10-03] MEDS: ALBUT/IPRATROP 3MG/0.5MG NEB 3 ML VIAL INH PRN ×2 (05:48→14:06)
[2017-10-03 06:20] LABS: HEMATOCRIT 30.3 % (37-47); HEMOGLOBIN 9.4 g/dL (12.0-16.0); MEAN CELL VOLUME 92.4 fL (80-100); MEAN CORPUSCULAR HEMOGLOBIN 28.7 pg (25-34); MEAN PLATELET VOLUME 10.1 fL (7.4-10.4); PLATELET COUNT 173 K/uL (130-400); RED CELL DISTRIBUTION WIDTH CV 13.8 % (11.5-14.5); RED CELL DISTRIBUTION WIDTH SD 46.4 fL (36.4-46.3)
[2017-10-03 06:40] LABS: CALCIUM 7.8 mg/dl (8.5-10.1); CREATININE 1.54 mg/dl (0.60-1.20); POTASSIUM 4.1 mmol/L (3.5-5.1)
[2017-10-03] MEDS: ASPIRIN 81 MG ECTAB PO SCH ×2 (08:47→21:00)
[2017-10-03] MEDS: FLECAINIDE ACETATE 100 MG TAB PO SCH ×2 (08:58→21:00)
[2017-10-03] MEDS: METOPROLOL SUCC 50MG EXT REL TAB PO SCH (09:01)
[2017-10-03] MEDS: CALCIUM CARBONATE 500 MG CHEWABLE PO PRN ×2 (09:02→21:05)
--- NOTE | 2017-10-03 09:13 | Progress Note ---
Progress Note Date of Service Oct 03, 2017. Progress Note Patient's leg pain is controlled. Back pain controlled. On examination vital signs are stable. She is sitting in a chair at the bedside. Has reasonable strength testing. Assessment status post lumbar decompression fusion. Plan at this time we will initiate physical therapy advance her bowel regimen anticipate home Thursday with home health.
[2017-10-03] MEDS: DEXAMETHASONE INJ 6 MG in SYRINGE 0 ML IV SCH ×2 (10:51→17:49)
--- NOTE | 2017-10-03 14:46 | Progress Note ---
Subjective Date of Service: Oct 03, 2017. Subjective Pt evaluation today including: conversation w/ patient, physical exam, lab review, review of studies, review of inpatient medication list Saw/examined the patient in room 304 She is laying in bed comfortably tells me the pain medications control her pain breathing and wheezing improved no bowel movement yet lack of appetite - patient has not been eating much; states she is not hungry - did not eat anything for lunch. Review of Systems Constitutional: + weakness, + problem reported (lack of appetite), No fever, No chills Respiratory: No cough, No sputum, No wheezing (resolved), No shortness of breath Cardiac: No chest pain Abdomen: + constipation, No pain, No nausea, No vomiting, No diarrhea Musculoskeletal: + joint pain (low back pain, improved with pain medications) Heme: No abnormal bleeding/bruising Medications Current Inpatient Medications Medications (Trade) Dose Ordered Sig/Donavan Route Start Time Stop Time Status Last Admin Dose Admin Promethazine HCl 12.5 mg/Sodium Chloride 50.5 ml @ 202 mls/hr Q6H PRN IV 09/30/17 13:30 10/30/17 13:29 Ondansetron HCl (Zofran Inj) 4 mg Q6H PRN IV 09/30/17 13:30 10/30/17 13:29 Metoclopramide HCl (Reglan Inj) 10 mg Q6H PRN IV 09/30/17 13:30 10/30/17 13:29 Lorazepam (Ativan Tab) 0.5 mg Q8H PRN PO 09/30/17 13:30 10/30/17 13:29 Lorazepam 0.5 mg/ Syringe 1 ml @ 1 mls/min Q8H PRN IV 09/30/17 13:30 10/30/17 13:29 Pneumococcal Polysaccharide Vaccine 1 ea PRN PRN N/A 09/30/17 13:30 10/30/17 13:29 Influenza Virus Vacc Triv Types A&B 1 ea PRN PRN N/A 09/30/17 13:30 10/30/17 13:29 Polyethylene (Miralax Powder Packet) 17 gm Q6 PO 10/02/17 06:00 11/01/17 05:59 10/03/17 12:00 17 GM Bisacodyl (Dulcolax Supp) 10 mg DAILY PRN [place] 09/30/17 13:30 10/30/17 13:29 Magnesium Hydroxide (Milk Of Magnesia Susp) 30 ml DAILY PRN PO 09/30/17 13:30 10/30/17 13:29 Hydromorphone HCl (Dilaudid Inj) 0.5 mg Q3H PRN IV 10/01/17 06:00 10/15/17 05:59 Oxycodone HCl (Roxicodone Immediate Rel Tab) 5-10mg prn moderate to sev... Q4H PRN PO 10/01/17 06:00 10/15/17 05:59 10/03/17 13:56 10 MG Acetaminophen (Tylenol Tab) 1,000 mg Q8H PRN PO 09/30/17 13:30 10/30/17 13:29 10/02/17 15:27 1,000 MG Acetaminophen 100 ml @ 400 mls/hr Q8H PRN IV 09/30/17 13:30 10/30/17 13:29 Naloxone HCl (Narcan Inj) 0.1 mg Q5M PRN IV 09/30/17 13:30 10/30/17 13:29 Senna/Docusate Sodium (Senokot S Tab) 2 tab HS PO 09/30/17 21:00 10/30/17 20:59 10/02/17 22:17 2 TAB Sodium Biphosphate/ Sodium Phosphate (Fleet Enema) 132 ml ONE PRN [place] 09/30/17 13:30 10/30/17 13:29 Hydroxyzine HCl (Vistaril Tab) 25 mg Q8H PRN PO 09/30/17 13:30 10/30/17 13:29 Al Hydroxide/Mg Hydroxide (Maalox Susp) 30 ml Q6H PRN PO 09/30/17 13:30 10/30/17 13:29 Famotidine (Pepcid Tab) 20 mg DAILY PRN PO 09/30/17 13:30 10/30/17 13:29 Diphenhydramine HCl (Benadryl Cap) 25 mg Q6H PRN PO 09/30/17 13:30 10/30/17 13:29 Aspirin (Ecotrin Tab) 81 mg BID PO 09/30/17 21:00 10/30/17 20:59 10/03/17 08:47 81 MG Calcium Carbonate (Tums Chew Tab) 500 mg Q2H PRN PO 09/30/17 13:30 10/30/17 13:29 10/03/17 09:02 500 MG Flecainide Acetate (Tambocor Tab) 75 mg BID PO 09/30/17 21:00 10/30/17 20:59 10/03/17 08:58 75 MG Levothyroxine Sodium (Synthroid Tab) 25 mcg DAILYBB PO 10/01/17 06:00 10/31/17 05:59 10/03/17 05:42 25 MCG Metoprolol Succinate (Toprol Xl Tab) 150 mg QAM PO 10/01/17 09:00 10/31/17 08:59 10/03/17 09:01 150 MG Nitroglycerin (Nitrostat Tab) 0.4 mg UD PRN UT 09/30/17 13:30 10/30/17 13:29 Simvastatin (Zocor Tab) 20 mg QPM PO 09/30/17 21:00 10/30/17 20:59 10/02/17 22:19 20 MG Hydromorphone HCl (Dilaudid Inj) 1 mg Q3H PRN IV 10/01/17 06:00 10/15/17 05:59 10/01/17 23:08 1 MG Albuterol/ Ipratropium (Duoneb) 3 ml Q4R PRN INH 10/01/17 13:45 10/31/17 13:44 10/03/17 14:06 3 ML Sodium Chloride 1,000 ml @ 80 mls/hr [id number] IV 10/01/17 15:00 10/31/17 14:59 10/03/17 04:44 80 MLS/HR Amlodipine Besylate (Norvasc Tab) 10 mg QPM PO 10/02/17 21:00 10/30/17 20:59 10/02/17 22:18 10 MG Dexamethasone Sodium Phosphate 6 mg/Syringe 1.5 ml @ 1 mls/min Q8H IV 10/03/17 10:00 11/02/17 09:59 10/03/17 10:51 1 MLS/MIN Objective Vital Signs Date Time Temp Pulse Resp B/P (MAP) Pulse Ox O2 Delivery O2 Flow Rate FiO2 10/03/17 14:06 64 16 96 Nasal Cannula 2.0 10/03/17 07:26 37.3 69 20 128/76 (93) 95 Nasal Cannula 2.0 10/03/17 05:50 75 16 95 Nasal Cannula 2.0 10/03/17 05:43 94 Nasal Cannula 2.0 10/03/17 05:39 77 149/78 (101) 89 Room Air 10/03/17 00:18 Room Air 10/02/17 22:48 37.1 66 17 146/79 (101) 92 Room Air 10/02/17 16:10 Room Air 10/02/17 15:03 37.0 65 18 136/75 (95) 93 Room Air 65 Physical Exam General Appearance: no apparent distress Respiratory/Chest: lungs clear, normal breath sounds, no respiratory distress, no accessory muscle use Neurologic/Psychiatric: no motor/sensory deficits, alert, normal mood/affect Laboratory Results Last 24 Hours Test 10/03/17 05:05 White Blood Count 9.10 K/uL Red Blood Count 3.28 M/uL Hemoglobin 9.4 g/dL Hematocrit 30.3 % Mean Corpuscular Volume 92.4 fL Mean Corpuscular Hemoglobin 28.7 pg Mean Corpuscular Hemoglobin Concent 31.0 g/dl RDW Standard Deviation 46.4 fL RDW Coefficient of Variation 13.8 % Platelet Count 173 K/uL Mean Platelet Volume 10.1 fL Sodium Level 136 mmol/L Potassium Level 4.1 mmol/L Chloride Level 107 mmol/L Carbon Dioxide Level 24 mmol/L Anion Gap 5.0 mmol/L Blood Urea Nitrogen 33 mg/dl Creatinine 1.54 mg/dl Est Creatinine Clear Calc Drug Dose 33.3 ml/min Estimated GFR () 38.1 Estimated GFR (Non- 32.9 BUN/Creatinine Ratio 21.4 Random Glucose 115 mg/dl Calcium Level 7.8 mg/dl Assessment and Plan This is a 72 year old female with a PMH of paroxysmal atrial fibrillation, CAD, HTN, hypothyroidism, HLD - presents for a lumbar decompression/fusion s/p lumbosacral decompression/fusion 10/03 * POD #3 * pain controlled with medications * monitoring Hgb - expected acute blood loss anemia post-operatively - no need for transfusion 10/02 * POD #2 * continue current management * one time dose of 0.5mg of Dilaudid * then try to stay away from IV pain meds 10/01 * POD #1 * doing well, no problems/issues * pain management as per ortho * monitor H/H Acute Kidney Injury likely underlying chronic kidney disease 10/03 * creatinine seems stable * encouraged to increase PO intake * etl data architect consulted, boost BID added 10/02 * creatinine down to 1.6 * baseline closer to 1.4-1.5 10/01 * creatinine elevated at around 1.8 today * yesterday, creatinine was around 1.4; from previous admission in 2013; creat baseline might be around 1.4 * for now, will do gentle IV hydration and encourage PO intake, recheck BMP in AM Wheezing * hx. of tobacco use * adding nebs * incentive spirometer * denies shortness of breath Paroxysmal A. Fib * Rhythm controlled on flecainide and rate controlled on metoprolol, continue both * resume Eliquis when okay with ortho HTN * BP controlled, continue metoprolol and amlodipine Hypothyroidism * Continue levothyroxine HLD * cont. statin DVT ppx * as per ortho FULL CODE
[2017-10-03] MEDS: BOOST VANILLA PO SCH (17:47)
[2017-10-03] MEDS: SIMVASTATIN 20 MG TAB PO SCH (21:00)
[2017-10-03] MEDS: AMLODIPINE BESYLATE 5 MG TAB PO SCH (21:00)
[2017-10-03] MEDS: DOCUSATE SODIUM/SENNA 50/8.6MG TAB PO SCH (21:00)
[2017-10-04] VITALS (8 sets, daily range): BP systolic 148–157; BP diastolic 72–76; PULSE 61–76; TEMP 36.4–36.8; O2SAT 91–99
[2017-10-04] MEDS: DEXAMETHASONE INJ 6 MG in SYRINGE 0 ML IV SCH ×3 (01:53→18:09)
[2017-10-04 05:43] LABS: HEMATOCRIT 29.1 % (37-47); HEMOGLOBIN 9.6 g/dL (12.0-16.0); MEAN CELL VOLUME 91.5 fL (80-100); MEAN CORPUSCULAR HEMOGLOBIN 30.2 pg (25-34); PLATELET COUNT 175 K/uL (130-400); RED CELL DISTRIBUTION WIDTH CV 13.4 % (11.5-14.5); RED CELL DISTRIBUTION WIDTH SD 44.8 fL (36.4-46.3); WHITE BLOOD COUNT 8.36 K/uL (4.8-10.8)
[2017-10-04] MEDS: SODIUM CHLORIDE 0.9% 1000ML 1,000 ML IV SCH ×2 (05:52→17:49)
[2017-10-04] MEDS: LEVOTHYROXINE 25 MCG TAB PO SCH (05:52)
[2017-10-04] MEDS: POLYETHYLENE (MIRALAX) 17 GM PACK PO SCH ×2 (05:53→12:00)
[2017-10-04 06:05] LABS: CALCIUM 8.1 mg/dl (8.5-10.1); CREATININE 1.4 mg/dl (0.60-1.20); POTASSIUM 4.4 mmol/L (3.5-5.1)
[2017-10-04] MEDS: FLECAINIDE ACETATE 100 MG TAB PO SCH ×2 (09:35→20:34)
[2017-10-04] MEDS: ASPIRIN 81 MG ECTAB PO SCH ×2 (09:35→20:33)
[2017-10-04] MEDS: METOPROLOL SUCC 50MG EXT REL TAB PO SCH (09:36)
[2017-10-04] MEDS: BOOST VANILLA PO SCH (09:50)
--- NOTE | 2017-10-04 10:33 | Progress Note ---
Subjective Date of Service: Oct 04, 2017. Subjective Pt evaluation today including: conversation w/ patient, physical exam, lab review, review of studies, review of inpatient medication list Saw/examined the patient in room 304 improved PO intake last evening and this morning No nausea/vomiting/diarrhea - +BM movement Review of Systems Constitutional: No fever, No chills Respiratory: No shortness of breath Cardiac: No chest pain Musculoskeletal: + joint pain (controlled with medications) Medications Current Inpatient Medications Medications (Trade) Dose Ordered Sig/Donavan Route Start Time Stop Time Status Last Admin Dose Admin Promethazine HCl 12.5 mg/Sodium Chloride 50.5 ml @ 202 mls/hr Q6H PRN IV 09/30/17 13:30 10/30/17 13:29 Ondansetron HCl (Zofran Inj) 4 mg Q6H PRN IV 09/30/17 13:30 10/30/17 13:29 Metoclopramide HCl (Reglan Inj) 10 mg Q6H PRN IV 09/30/17 13:30 10/30/17 13:29 Lorazepam (Ativan Tab) 0.5 mg Q8H PRN PO 09/30/17 13:30 10/30/17 13:29 Lorazepam 0.5 mg/ Syringe 1 ml @ 1 mls/min Q8H PRN IV 09/30/17 13:30 10/30/17 13:29 Pneumococcal Polysaccharide Vaccine 1 ea PRN PRN N/A 09/30/17 13:30 10/30/17 13:29 Influenza Virus Vacc Triv Types A&B 1 ea PRN PRN N/A 09/30/17 13:30 10/30/17 13:29 Polyethylene (Miralax Powder Packet) 17 gm Q6 PO 10/02/17 06:00 11/01/17 05:59 10/04/17 05:53 17 GM Bisacodyl (Dulcolax Supp) 10 mg DAILY PRN NM 09/30/17 13:30 10/30/17 13:29 Magnesium Hydroxide (Milk Of Magnesia Susp) 30 ml DAILY PRN PO 09/30/17 13:30 10/30/17 13:29 Hydromorphone HCl (Dilaudid Inj) 0.5 mg Q3H PRN IV 10/01/17 06:00 10/15/17 05:59 Oxycodone HCl (Roxicodone Immediate Rel Tab) 5-10mg prn moderate to sev... Q4H PRN PO 10/01/17 06:00 10/15/17 05:59 10/03/17 13:56 10 MG Acetaminophen (Tylenol Tab) 1,000 mg Q8H PRN PO 09/30/17 13:30 10/30/17 13:29 10/02/17 15:27 1,000 MG Acetaminophen 100 ml @ 400 mls/hr Q8H PRN IV 09/30/17 13:30 10/30/17 13:29 Naloxone HCl (Narcan Inj) 0.1 mg Q5M PRN IV 09/30/17 13:30 10/30/17 13:29 Senna/Docusate Sodium (Senokot S Tab) 2 tab HS PO 09/30/17 21:00 10/30/17 20:59 10/03/17 21:00 2 TAB Sodium Biphosphate/ Sodium Phosphate (Fleet Enema) 132 ml ONE PRN NM 09/30/17 13:30 10/30/17 13:29 Hydroxyzine HCl (Vistaril Tab) 25 mg Q8H PRN PO 09/30/17 13:30 10/30/17 13:29 Al Hydroxide/Mg Hydroxide (Maalox Susp) 30 ml Q6H PRN PO 09/30/17 13:30 10/30/17 13:29 Famotidine (Pepcid Tab) 20 mg DAILY PRN PO 09/30/17 13:30 10/30/17 13:29 Diphenhydramine HCl (Benadryl Cap) 25 mg Q6H PRN PO 09/30/17 13:30 10/30/17 13:29 Aspirin (Ecotrin Tab) 81 mg BID PO 09/30/17 21:00 10/30/17 20:59 10/04/17 09:35 81 MG Calcium Carbonate (Tums Chew Tab) 500 mg Q2H PRN PO 09/30/17 13:30 10/30/17 13:29 10/03/17 21:05 500 MG Flecainide Acetate (Tambocor Tab) 75 mg BID PO 09/30/17 21:00 10/30/17 20:59 3/18/18 09:35 75 MG Levothyroxine Sodium (Synthroid Tab) 25 mcg DAILYBB PO 10/01/17 06:00 10/31/17 05:59 10/04/17 05:52 25 MCG Metoprolol Succinate (Toprol Xl Tab) 150 mg QAM PO 10/01/17 09:00 10/31/17 08:59 10/04/17 09:36 150 MG Nitroglycerin (Nitrostat Tab) 0.4 mg UD PRN UT 09/30/17 13:30 10/30/17 13:29 Simvastatin (Zocor Tab) 20 mg QPM PO 09/30/17 21:00 10/30/17 20:59 10/03/17 21:00 20 MG Hydromorphone HCl (Dilaudid Inj) 1 mg Q3H PRN IV 10/01/17 06:00 10/15/17 05:59 10/01/17 23:08 1 MG Albuterol/ Ipratropium (Duoneb) 3 ml Q4R PRN INH 10/01/17 13:45 10/31/17 13:44 10/03/17 14:06 3 ML Sodium Chloride 1,000 ml @ 80 mls/hr [id number] IV 10/01/17 15:00 10/31/17 14:59 10/04/17 05:52 80 MLS/HR Amlodipine Besylate (Norvasc Tab) 10 mg QPM PO 10/02/17 21:00 10/30/17 20:59 10/03/17 21:00 10 MG Dexamethasone Sodium Phosphate 6 mg/Syringe 1.5 ml @ 1 mls/min Q8H IV 10/03/17 10:00 11/02/17 09:59 10/04/17 09:39 1 MLS/MIN Enteral Nutritional Formula (Boost) 1 can BIDM PO 10/03/17 17:45 11/02/17 17:44 10/04/17 09:50 1 CAN Objective Vital Signs Date Time Temp Pulse Resp B/P (MAP) Pulse Ox O2 Delivery O2 Flow Rate FiO2 10/04/17 07:50 36.4 61 16 148/76 (100) 91 Room Air 10/04/17 06:15 66 93 Room Air 10/03/17 23:40 Nasal Cannula 2.0 10/03/17 23:21 36.9 66 17 158/81 (106) 97 Nasal Cannula 2.0 10/03/17 19:36 Nasal Cannula 2.0 10/03/17 15:16 36.7 68 14 135/73 (93) 93 Nasal Cannula 2.0 10/03/17 14:06 64 16 96 Nasal Cannula 2.0 Physical Exam General Appearance: no apparent distress Respiratory/Chest: no respiratory distress, no accessory muscle use Extremities: normal inspection, no pedal edema Neurologic/Psychiatric: no motor/sensory deficits, alert, normal mood/affect Laboratory Results Last 24 Hours Test 10/04/17 05:04 White Blood Count 8.36 K/uL Red Blood Count 3.18 M/uL Hemoglobin 9.6 g/dL Hematocrit 29.1 % Mean Corpuscular Volume 91.5 fL Mean Corpuscular Hemoglobin 30.2 pg Mean Corpuscular Hemoglobin Concent 33.0 g/dl RDW Standard Deviation 44.8 fL RDW Coefficient of Variation 13.4 % Platelet Count 175 K/uL Mean Platelet Volume 10.0 fL Sodium Level 137 mmol/L Potassium Level 4.4 mmol/L Chloride Level 107 mmol/L Carbon Dioxide Level 24 mmol/L Anion Gap 6.0 mmol/L Blood Urea Nitrogen 30 mg/dl Creatinine 1.40 mg/dl Est Creatinine Clear Calc Drug Dose 36.6 ml/min Estimated GFR () 42.8 Estimated GFR (Non- 36.9 BUN/Creatinine Ratio 21.6 Random Glucose 160 mg/dl Calcium Level 8.1 mg/dl Assessment and Plan This is a 72 year old female with a PMH of paroxysmal atrial fibrillation, CAD, HTN, hypothyroidism, HLD - presents for a lumbar decompression/fusion s/p lumbosacral decompression/fusion 10/04 * improved PO intake * +BM * POD #4 * plan to d/c as per ortho * continue PT/OT 10/03 * POD #3 * pain controlled with medications * monitoring Hgb - expected acute blood loss anemia post-operatively - no need for transfusion 10/02 * POD #2 * continue current management * one time dose of 0.5mg of Dilaudid * then try to stay away from IV pain meds 10/01 * POD #1 * doing well, no problems/issues * pain management as per ortho * monitor H/H Acute Kidney Injury likely underlying chronic kidney disease 10/03 * creatinine seems stable * encouraged to increase PO intake * cut off machine operator consulted, boost BID added 10/02 * creatinine down to 1.6 * baseline closer to 1.4-1.5 10/01 * creatinine elevated at around 1.8 today * yesterday, creatinine was around 1.4; from previous admission in 2013; creat baseline might be around 1.4 * for now, will do gentle IV hydration and encourage PO intake, recheck BMP in AM Wheezing * hx. of tobacco use * adding nebs * incentive spirometer * denies shortness of breath Paroxysmal A. Fib * Rhythm controlled on flecainide and rate controlled on metoprolol, continue both * resume Eliquis when okay with ortho HTN * BP controlled, continue metoprolol and amlodipine Hypothyroidism * Continue levothyroxine HLD * cont. statin DVT ppx * as per ortho FULL CODE
[2017-10-04] MEDS ORDERED: RXC5 PO (12:38)
--- NOTE | 2017-10-04 12:38 | Discharge Instructions ---
Discharge Instructions Date of Service Oct 04, 2017. Admission Reason for Admission: Lumbar Spinal Stenosis Discharge Discharge Diagnosis / Problem: lumbar stenosis Discharge Goals Goal(s): Improve function Activity Recommendations Activity Limitations: per Instructions/Follow-up section . Instructions / Follow-Up Instructions / Follow-Up ACTIVITY RECOMMENDATIONS: SELF CARE INSTRUCTIONS AFTER THORACIC/LUMBAR FUSIONS 1. You may walk to your tolerance. It is good exercise for your legs and back. Expect some back and intermittent leg aches and pains. 2. You may perform "counter-top" level activities (make a sandwich, ledy with a project, etc.). 3. No bending or lifting of more than 10 pounds or back twisting of any nature (roll like a log when turning in bed). 4. You may ride in a car for 20-30 minutes at a time. No driving until after your first visit with your doctor. 5. Frequent changes of position and restricting sitting to 30 minutes at a time will help limit the amount of back spasms and stiffness you may experience. 6. You may discontinue the use of ambulatory aids (cane, crutches, etc.) once your strength and confidence allow. 7. You may bell captain the shower and let water strike your incision when you arrive home at least once daily. Do not take a tub bath, sit in a hot tub or go into a swimming pool until after your first recheck in the office. SPECIAL CARE INSTRUCTIONS: VERY IMPORTANT TO READ AND REVIEW A. Your surgical incision has been closed with a cosmetic suture under the skin that will dissolve in about 6 weeks. In 14 days, you can use a pair of clean scissors and cut the suture that is left outside of the skin at the ends of your incision. 1. The small skin tapes can be removed 7 days after surgery if they have not fallen off by that point. 2. You may keep the wound open to air as much as possible to promote healing after post-op day number 5 unless told otherwise by your doctor. 3. If you think the wound looks like it is becoming infected (redness or worsening drainage) and/or you are experiencing fever, chill or worsening back pain and muscle spasms, contact the office so that we may evaluate you as soon as possible. B. Complications are uncommon, but please contact us if you have any signs or symptoms of: 1. wound infection (fever higher than 102.5 degrees F, redness, separation of wound, drainage, or increasing pain from the incision) 2. blood clots in legs (pain, swelling, redness and warmth in legs) 3. urinary tract infection (fever higher than 102.5 degrees F, burning upon urination or increased frequency of urination) 4. nerve problems (inability to walk on your toes or heels, numbness, loss of bowel or bladder control) 5. any other symptoms that concern you C. Please call the office at if you have any concerns or questions about your operation or recovery. D. No smoking! Smoking drastically decreases the chance of a solid fusion. E. Do not take any anti-inflammatory medications (Indocin, Advil, Motrin, Aspirin, Naprosyn, etc.) as these may inhibit the chance of a solid fusion. Tylenol is okay to take for pain. MANAGING PAIN AFTER SPINAL SURGERY 1. Narcotic medication is intended for short-term use and will be provided for surgical pain. Surgical pain usually lasts for a period of 4-6 weeks. Narcotic medication includes Percocet, Vicodin, Darvocet, Tylenol #3 or Lortab. 2. Longer-term pain is more appropriately treated with non-narcotic medication such as Tylenol ES. 3. Muscle spasm is not appropriately treated with narcotics. Muscle relaxers such as Soma, Flexeril or Skelaxin can be used along with Tylenol ES. 4. Remember that we all live with some "aches and pains". This is not unusual or uncommon after an injury or as we get older. a. Back pain is expected and may include muscle spasms for 4 to 6 weeks after surgery. The pain should gradually improve. If the pain worsens for no apparent reason, please contact the office. b. Intermittent leg pain may also be experienced and should not be concerned about unless it worsens for no apparent reason. If so, please contact the office. 5. We will provide appropriate medication within the normal guidelines of their prescribed use. We will also be very cautious and aware of potential abuse and extended duration of patients' medication needs. a. Pain medications are for your comfort and to assist with sleep and rest so that the tissue can heal. They are not provided in order to return to normal activity and should not be used through the day. To do so or worsening pain at night can result from ongoing tissue damage and development of tolerance to the prescribed medicine. 6. Please allow 2-3 days to process refills. Prescriptions will not be mailed but must be picked up at the office. FOLLOW UP VISIT: Keep your scheduled follow-up appointment. Any questions, please call the office at . Current Hospital Diet Patient's current hospital diet: Regular Diet Discharge Diet Recommended Diet: Regular Diet Procedures Procedures Performed: #1 lumbar decompression medial facetectomy foraminotomy L3-4 L4-5 L5-S1. #2 posterior spinal fusion L4-5 L5-S1. #3 placement of posterior segmental transportation L4-5 L5-S1. #4 interbody fusion L4-5. #5 placed a peek cage 13 x 22 mm at L4-5. #6 placement of locally harvested Bosch's allograft in the posterior gutters. #7 placement if his counts sponge, mass graft the posterior gutters and ostially up in the interbody space. Pending Studies Studies pending at discharge: no Medical Emergencies . Who to Call and When: Medical Emergencies: If at any time you feel your situation is an emergency, please call 911 immediately. . Non-Emergent Contact Non-Emergency issues call your: Primary Care Provider . "Provider Documentation" section prepared by Yair Mcdaniels. .
--- NOTE | 2017-10-04 12:52 | Progress Note ---
Progress Note Date of Service Oct 04, 2017. Progress Note Patient's back pain is controlled. She denies any leg pain. She feels that she is improving with physical therapy. Her bowels are working well. On exam she is sitting up in bed has good strength testing appears comfortable. Assessment status post lumbar decompression fusion per plan at this time we will continue with physical therapy monitor her progress. We are considering discharge home tomorrow with home health versus possible rehab.
[2017-10-04] MEDS ORDERED: NURSING VERBAL MED ORDER ONE (13:00)
[2017-10-04] MEDS: OXYCODONE HCL IR 5 MG TAB (IMMEDIATE RELEASE) PO PRN ×2 (13:09→20:36)
[2017-10-04] MEDS: ALBUT/IPRATROP 3MG/0.5MG NEB 3 ML VIAL INH PRN ×2 (14:23→23:46)
[2017-10-04] MEDS: CALCIUM CARBONATE 500 MG CHEWABLE PO PRN ×2 (14:46→19:12)
[2017-10-04] MEDS ORDERED: BOOST VANILLA PO SCH (19:00)
[2017-10-04] MEDS: SIMVASTATIN 20 MG TAB PO SCH (20:32)
[2017-10-04] MEDS: DOCUSATE SODIUM/SENNA 50/8.6MG TAB PO SCH (20:33)
[2017-10-04] MEDS: AMLODIPINE BESYLATE 5 MG TAB PO SCH (20:33)
[2017-10-05 00:24] LABS: HEMATOCRIT 28.8 % (37-47); HEMOGLOBIN 9.7 g/dL (12.0-16.0); IG# 0.02 K/uL (0.00-0.02); LYMPH % 6.5 %; LYMPH ABS # 0.69 K/uL (1.2-3.4); MEAN CELL VOLUME 90.6 fL (80-100); MEAN CORPUSCULAR HEMOGLOBIN 30.5 pg (25-34); MEAN CORPUSCULAR HGB CONC 33.7 g/dl (32-36); MEAN PLATELET VOLUME 9.8 fL (7.4-10.4); MONO % 4.9 %; MONO ABS # 0.52 K/uL (0.11-0.59); NEUT % 88.4 %; NEUT ABS # 9.36 K/uL (1.4-6.5); PLATELET COUNT 213 K/uL (130-400); RED CELL DISTRIBUTION WIDTH CV 13.6 % (11.5-14.5); RED CELL DISTRIBUTION WIDTH SD 45.5 fL (36.4-46.3); WHITE BLOOD COUNT 10.59 K/uL (4.8-10.8)
[2017-10-05 00:45] LABS: CALCIUM 7.9 mg/dl (8.5-10.1); CREATININE 1.47 mg/dl (0.60-1.20); POTASSIUM 4.7 mmol/L (3.5-5.1)
[2017-10-05] MEDS ORDERED: FUROSEMIDE INJ 40 MG in SYRINGE 0 ML IV ONE (01:30)
[2017-10-05] MEDS: DEXAMETHASONE INJ 6 MG in SYRINGE 0 ML IV SCH ×3 (02:19→16:39)
[2017-10-05] MEDS: CALCIUM CARBONATE 500 MG CHEWABLE PO PRN (02:23)
[2017-10-05] MEDS: LEVOTHYROXINE 25 MCG TAB PO SCH (06:19)
[2017-10-05 06:38] VITALS: BP 164/79; PULSE 64; TEMP 36.3; O2SAT 95
--- NOTE | 2017-10-05 07:09 | DIAGNOSTIC IMAGING REPORT ---
CHEST ONE VIEW PORTABLE CLINICAL HISTORY: 72 years-old Female presenting with respiratory distress. TECHNIQUE: Portable upright AP view of the chest was obtained. COMPARISON: 10/04/2013. FINDINGS: Atherosclerosis of aortic arch. Cardiac silhouette enlarged. Pulmonary vascular prominence. Mid to basilar hazy added density of the lungs as well as prominent lung markings bilaterally. No large pleural effusion or pneumothorax. Degenerative changes of the left glenohumeral joint with possible posttraumatic or degenerative deformity of the left humeral head. Upper abdomen normal. IMPRESSION: 1. Cardiomegaly with volume overload and developing pulmonary edema suspected. The report will be called/faxed according to standard departmental protocol. Electronically signed by: Jasen Franks M.D. 10/05/2017 7:08 AM Dictated Date/Time: 10/05/2017 7:06 AM
[2017-10-05] MEDS: ALBUT/IPRATROP 3MG/0.5MG NEB 3 ML VIAL INH PRN (07:49)
[2017-10-05 07:50] VITALS: PULSE 75; O2SAT 96
[2017-10-05] MEDS: ASPIRIN 81 MG ECTAB PO SCH (07:59)
[2017-10-05] MEDS: METOPROLOL SUCC 50MG EXT REL TAB PO SCH (07:59)
[2017-10-05] MEDS: FLECAINIDE ACETATE 100 MG TAB PO SCH (08:00)
[2017-10-05] MEDS ORDERED: FUROSEMIDE INJ 20 MG in SYRINGE 0 ML IV ONE (08:00)
[2017-10-05 08:19] VITALS: BP 168/84; PULSE 68; TEMP 36.5; O2SAT 95
[2017-10-05 08:24] VITALS: O2SAT 95
[2017-10-05 09:03] VITALS: O2SAT 99
[2017-10-05] MEDS: OXYCODONE HCL IR 5 MG TAB (IMMEDIATE RELEASE) PO PRN (09:43)
--- NOTE | 2017-10-05 09:58 | Progress Note ---
Subjective Date of Service: Oct 05, 2017. Subjective Pt evaluation today including: conversation w/ patient, physical exam, lab review, review of studies, review of inpatient medication list Saw/examined the patient in room 304 had some shortness of breath and wheezing last evening nebulizers given, CXR was performed suggesting developing pulmonary edema patient refused Lasix last evening, but agreed to take some this AM. She is breathing better; currently on 3L of O2 Review of Systems Constitutional: No fever, No chills Respiratory: + wheezing, + shortness of breath, No cough, No sputum, No dyspnea on exertion, No dyspnea at rest, No hemoptysis Cardiac: No chest pain, No edema, No palpitations Musculoskeletal: + joint pain (controlled with medications) Heme: No abnormal bleeding/bruising Medications Current Inpatient Medications Medications (Trade) Dose Ordered Sig/Donavan Route Start Time Stop Time Status Last Admin Dose Admin Promethazine HCl 12.5 mg/Sodium Chloride 50.5 ml @ 202 mls/hr Q6H PRN IV 09/30/17 13:30 10/30/17 13:29 Ondansetron HCl (Zofran Inj) 4 mg Q6H PRN IV 09/30/17 13:30 10/30/17 13:29 Metoclopramide HCl (Reglan Inj) 10 mg Q6H PRN IV 09/30/17 13:30 10/30/17 13:29 Lorazepam (Ativan Tab) 0.5 mg Q8H PRN PO 09/30/17 13:30 10/30/17 13:29 Lorazepam 0.5 mg/ Syringe 1 ml @ 1 mls/min Q8H PRN IV 09/30/17 13:30 10/30/17 13:29 Pneumococcal Polysaccharide Vaccine 1 ea PRN PRN N/A 09/30/17 13:30 10/30/17 13:29 Influenza Virus Vacc Triv Types A&B 1 ea PRN PRN N/A 09/30/17 13:30 10/30/17 13:29 Bisacodyl (Dulcolax Supp) 10 mg DAILY PRN [place] 09/30/17 13:30 10/30/17 13:29 Magnesium Hydroxide (Milk Of Magnesia Susp) 30 ml DAILY PRN PO 09/30/17 13:30 10/30/17 13:29 Hydromorphone HCl (Dilaudid Inj) 0.5 mg Q3H PRN IV 10/01/17 06:00 10/15/17 05:59 Oxycodone HCl (Roxicodone Immediate Rel Tab) 5-10mg prn moderate to sev... Q4H PRN PO 10/01/17 06:00 10/15/17 05:59 10/05/17 09:43 10 MG Acetaminophen (Tylenol Tab) 1,000 mg Q8H PRN PO 09/30/17 13:30 10/30/17 13:29 10/02/17 15:27 1,000 MG Acetaminophen 100 ml @ 400 mls/hr Q8H PRN IV 09/30/17 13:30 10/30/17 13:29 Naloxone HCl (Narcan Inj) 0.1 mg Q5M PRN IV 09/30/17 13:30 10/30/17 13:29 Senna/Docusate Sodium (Senokot S Tab) 2 tab HS PO 09/30/17 21:00 10/30/17 20:59 10/04/17 20:33 2 TAB Sodium Biphosphate/ Sodium Phosphate (Fleet Enema) 132 ml ONE PRN [place] 09/30/17 13:30 10/30/17 13:29 Hydroxyzine HCl (Vistaril Tab) 25 mg Q8H PRN PO 09/30/17 13:30 10/30/17 13:29 Al Hydroxide/Mg Hydroxide (Maalox Susp) 30 ml Q6H PRN PO 09/30/17 13:30 10/30/17 13:29 Famotidine (Pepcid Tab) 20 mg DAILY PRN PO 09/30/17 13:30 10/30/17 13:29 Diphenhydramine HCl (Benadryl Cap) 25 mg Q6H PRN PO 09/30/17 13:30 10/30/17 13:29 Aspirin (Ecotrin Tab) 81 mg BID PO 09/30/17 21:00 10/30/17 20:59 10/05/17 07:59 81 MG Calcium Carbonate (Tums Chew Tab) 500 mg Q2H PRN PO 09/30/17 13:30 10/30/17 13:29 10/05/17 02:23 500 MG Flecainide Acetate (Tambocor Tab) 75 mg BID PO 09/30/17 21:00 10/30/17 20:59 10/05/17 08:00 75 MG Levothyroxine Sodium (Synthroid Tab) 25 mcg DAILYBB PO 10/01/17 06:00 10/31/17 05:59 10/05/17 06:19 25 MCG Metoprolol Succinate (Toprol Xl Tab) 150 mg QAM PO 10/01/17 09:00 10/31/17 08:59 10/05/17 07:59 150 MG Nitroglycerin (Nitrostat Tab) 0.4 mg UD PRN UT 09/30/17 13:30 10/30/17 13:29 Simvastatin (Zocor Tab) 20 mg QPM PO 09/30/17 21:00 10/30/17 20:59 10/04/17 20:32 20 MG Hydromorphone HCl (Dilaudid Inj) 1 mg Q3H PRN IV 10/01/17 06:00 10/15/17 05:59 10/01/17 23:08 1 MG Albuterol/ Ipratropium (Duoneb) 3 ml Q4R PRN INH 10/01/17 13:45 10/31/17 13:44 10/05/17 07:49 3 ML Amlodipine Besylate (Norvasc Tab) 10 mg QPM PO 10/02/17 21:00 10/30/17 20:59 10/04/17 20:33 10 MG Dexamethasone Sodium Phosphate 6 mg/Syringe 1.5 ml @ 1 mls/min Q8H IV 10/03/17 10:00 11/02/17 09:59 10/05/17 09:39 1 MLS/MIN Enteral Nutritional Formula (Boost) 1 can BID@1000,1900 PO 10/05/17 10:00 11/04/17 09:59 Objective Vital Signs Date Time Temp Pulse Resp B/P (MAP) Pulse Ox O2 Delivery O2 Flow Rate FiO2 10/05/17 09:03 99 10/05/17 08:24 95 Nasal Cannula 3.0 10/05/17 08:19 36.5 68 20 168/84 (112) 95 Nasal Cannula 3.0 10/05/17 07:50 75 22 96 Nasal Cannula 3.0 10/05/17 07:45 Nasal Cannula 3.0 10/05/17 06:38 36.3 64 18 164/79 (107) 95 Nasal Cannula 3.0 10/04/17 23:46 74 20 97 Nasal Cannula 2.0 10/04/17 23:30 93 Room Air 2.0 10/04/17 23:15 36.8 64 16 155/74 (101) 93 Room Air 10/04/17 20:34 69 157/75 (102) 10/04/17 15:45 Room Air 10/04/17 14:50 36.4 71 16 154/72 (99) 99 Room Air 10/04/17 14:23 76 16 97 Room Air Physical Exam General Appearance: no apparent distress Respiratory/Chest: no respiratory distress, no accessory muscle use, + decreased breath sounds Cardiovascular: regular rate, rhythm, no edema, no murmur Extremities: normal inspection, no pedal edema Neurologic/Psychiatric: no motor/sensory deficits, alert, normal mood/affect Laboratory Results Last 24 Hours Test 10/05/17 00:02 10/05/17 05:20 White Blood Count 10.59 K/uL Red Blood Count 3.18 M/uL Hemoglobin 9.7 g/dL Hematocrit 28.8 % Mean Corpuscular Volume 90.6 fL Mean Corpuscular Hemoglobin 30.5 pg Mean Corpuscular Hemoglobin Concent 33.7 g/dl Platelet Count 213 K/uL Mean Platelet Volume 9.8 fL Neutrophils (%) (Auto) 88.4 % Lymphocytes (%) (Auto) 6.5 % Monocytes (%) (Auto) 4.9 % Eosinophils (%) (Auto) 0.0 % Basophils (%) (Auto) 0.0 % Neutrophils # (Auto) 9.36 K/uL Lymphocytes # (Auto) 0.69 K/uL Monocytes # (Auto) 0.52 K/uL Eosinophils # (Auto) 0.00 K/uL Basophils # (Auto) 0.00 K/uL RDW Standard Deviation 45.5 fL RDW Coefficient of Variation 13.6 % Immature Granulocyte % (Auto) 0.2 % Immature Granulocyte # (Auto) 0.02 K/uL Sodium Level 136 mmol/L Potassium Level 4.7 mmol/L Chloride Level 106 mmol/L Carbon Dioxide Level 23 mmol/L Anion Gap 7.0 mmol/L Blood Urea Nitrogen 34 mg/dl Creatinine 1.47 mg/dl Est Creatinine Clear Calc Drug Dose 34.9 ml/min Estimated GFR () 40.3 Estimated GFR (Non- 34.8 BUN/Creatinine Ratio 23.1 Random Glucose 230 mg/dl Calcium Level 7.9 mg/dl Magnesium Level 2.3 mg/dl Thyroid Stimulating Hormone (TSH) 0.246 uIu/ml Free Thyroxine 1.24 ng/dl Total Triiodothyronine 0.48 ng/ml Assessment and Plan This is a 72 year old female with a PMH of paroxysmal atrial fibrillation, CAD, HTN, hypothyroidism, HLD - presents for a lumbar decompression/fusion s/p lumbosacral decompression/fusion 10/05 * patient is doing well * pain is controlled * H/H stable * continue PT/OT as per ortho and discharge planning to [facility] * resume Eliquis when okay with orthopedics 10/04 improved PO intake +BM POD #4 plan to d/c as per ortho continue PT/OT 3 POD #3 pain controlled with medications monitoring Hgb - expected acute blood loss anemia post-operatively - no need for transfusion 10/02 POD #2 continue current management one time dose of 0.5mg of Dilaudid then try to stay away from IV pain meds 10/01 POD #1 doing well, no problems/issues pain management as per ortho monitor H/H Acute Kidney Injury likely underlying chronic kidney disease 10/05 * kidney function has stabilized * patient is likely at baseline with her creat * should have outpatient follow-up * starting low dose VALENTINE-I 10/03 creatinine seems stable encouraged to increase PO intake gas system operator consulted, boost BID added 10/02 creatinine down to 1.6 baseline closer to 1.4-1.5 10/01 creatinine elevated at around 1.8 today yesterday, creatinine was around 1.4; from previous admission in 2013; creat baseline might be around 1.4 for now , will do gentle IV hydration and encourage PO intake, recheck BMP in AM Wheezing * hx. of tobacco use * adding nebs * incentive spirometer * denies shortness of breath Paroxysmal A. Fib * Rhythm controlled on flecainide and rate controlled on metoprolol, continue both * resume Eliquis when okay with ortho HTN 10/05 * BP elevated, will add VALENTINE-I to Toprol XL 150mg and Amlodipine 10mg daily 3/16 * BP controlled, continue metoprolol and amlodipine Hypothyroidism * Continue levothyroxine HLD * cont. statin DVT ppx * as per ortho FULL CODE
[2017-10-05] MEDS ORDERED: BOOST VANILLA PO SCH (10:00)
[2017-10-05] MEDS ORDERED: LISINOPRIL 5 MG TAB PO ONE (10:30)
--- NOTE | 2017-10-05 14:59 | Discharge Summary ---
Orthopedic Discharge Summary Admission Date/Reason Sep 30, 2017 at 11:00 Lumbar Spinal Stenosis. Discharge Date/Disposition Oct 05, 2017 Home Diagnosis Principal Diagnosis: Lumbar spinal stenosis Admission Physical Exam As per Admitting History & Physical. Hospital Course Patient underwent lumbar decompression fusion tolerated this well was taken to the orthopedic floor postoperatively. Postop day #1 she was up and able to tolerate progress through postop day #2 subsequently she was discharged postop day #3. Discharge orders and instructions can be found in the chart for the review. Discharge Instructions Please refer to the electronic Patient Visit Report (Discharge Instructions) for additional information.
--- NOTE | 2017-10-05 15:00 | Progress Note ---
Progress Note Date of Service Oct 05, 2017. Progress Note Patient has marked improvement of her ambulation and back pain. She still requires a marked assistance. Exam she is good strength testing is able to ambulate with a walker. Assessment status post lumbar decompression fusion for pain at this time we are hoping to get her to a rehab facility upon discharge.
[2017-10-05 15:16] VITALS: BP 164/77; PULSE 74; TEMP 36.4; O2SAT 96
== END 2017-10-05 17:16 | DRG 454 ==
LOC: C.ACU 09:25 → C.3E 11:00 → ENRESERV 14:17
PROVIDERS: ADMIT Orthopaedic Surgery Orthopaedic Surgery of the Spine; ATTEND Orthopaedic Surgery Orthopaedic Surgery of the Spine
PROC: 0SG00AJ Fusion of Lumbar Vertebral Joint with Interbody Fusion Device, Posterior Approach, Anterior Column, Open Approach (ICD-10-PCS; principal; 2017-09-30 11:45)
PROC: 0SG3071 Fusion of Lumbosacral Joint with Autologous Tissue Substitute, Posterior Approach, Posterior Column, Open Approach (ICD-10-PCS; principal; 2017-09-30 11:45)
PROC: 0SG0071 Fusion of Lumbar Vertebral Joint with Autologous Tissue Substitute, Posterior Approach, Posterior Column, Open Approach (ICD-10-PCS; principal; 2017-09-30 11:45)
PROC: 0ST20ZZ Resection of Lumbar Vertebral Disc, Open Approach (ICD-10-PCS; principal; 2017-09-30 11:45)
DX: M48.061 Spinal stenosis, lumbar region without neurogenic claudication (principal); N17.9 Acute kidney failure, unspecified; I48.0 Paroxysmal atrial fibrillation; I10 Essential (primary) hypertension; I25.10 Atherosclerotic heart disease of native coronary artery without angina pectoris; E03.9 Hypothyroidism, unspecified; E78.5 Hyperlipidemia, unspecified; R06.2 Wheezing; Z79.01 Long term (current) use of anticoagulants; Z79.82 Long term (current) use of aspirin; Z79.899 Other long term (current) drug therapy; Z88.0 Allergy status to penicillin; Z88.2 Allergy status to sulfonamides; Z88.8 Allergy status to other drugs, medicaments and biological substances; F17.200 Nicotine dependence, unspecified, uncomplicated